=== PATIENT | male | born 1960 | race African-American/Black ===

== ENCOUNTER 2018-05-18 04:48 | Emergency (ER) | payer BC ==
[2018-05-18] MEDS ORDERED: cloNIDine HCl 0.1 MG TAB ONE (05:09)
[2018-05-18 05:41] LABS: Urine Blood TRACE (NEG); Urine Glucose NEGATIVE (NEG); Urine Protein NEGATIVE (NEG); Urine Specific Gravity 1.005 (1.005-1.030); Urine pH 5.5 (5.0-7.0)
[2018-05-18 05:47] LABS: Absolute Lymphocytes (CBC) 1.6 K/uL (0.7-4.9); Absolute Monocytes 0.5 K/uL (0.1-1.3); Absolute Neutrophil 3.2 K/uL (1.8-8.0); Basophils % 0.8 % (0-1.3); Eosinophils % 1.8 % (0-4.4); Hematocrit 42.7 % (39.6-49.0); Lymphocytes % 29.1 % (15.3-44.8); MCH 30.8 pg (27.0-35.0); MCV 90.8 fL (80-100); MPV 9.9 fL (7.6-11.3); Monocytes % 9.3 % (3.3-12.3); RBC Red Blood Cell Count 4.71 M/uL (4.33-5.43)
[2018-05-18 06:19] LABS: BUN Blood Urea Nitrogen 20 mg/dL (7-18); Bicarbonate 27 mmol/L (21-32); Glucose Level 100 mg/dL (74-106); Potassium 3.8 mmol/L (3.5-5.1); Sodium Level 140 mmol/L (136-145)
--- NOTE | 2018-05-18 06:25 | ER ---
Nurse's Notes [facility] Name: Alton Cloud Age: 57 yrs Sex: Male : 1960 Arrival Date: 05/18/2018 Time: 04:50 Bed 6 Private MD: Kuldeep Thomas C Diagnosis: Uncontrolled hypertension Presentation: 05/18 04:57 Presenting complaint: Patient states: My BP has been elevated since last night. I took tl2 an extra half of my amlodipine last night and this morning I felt jittery and my BP was still elevated so I took a whole dose of amlodipine about 2 hours ago. Denies vision problems, pain or dizziness. Transition of care: patient was not received from another setting of care. Onset of symptoms was May 17, 2018. Risk Assessment: Do you want to hurt yourself or someone else? Patient reports no desire to harm self or others. Initial Sepsis Screen: Does the patient meet any 2 criteria? No. Patient's initial sepsis screen is negative. Does the patient have a suspected source of infection? No. Patient's initial sepsis screen is negative. Care prior to arrival: None. 04:57 Method Of Arrival: Ambulatory tl2 04:57 Acuity: PRAKASH 3 tl2 Triage Assessment: 04:59 General: Appears in no apparent distress. comfortable, Behavior is calm, cooperative, tl2 appropriate for age. Pain: Denies pain. Historical: - Allergies: 04:59 No Known Allergies; tl2 - Home Meds: 04:59 amlodipine 5 mg tab 1 tab once daily [Active]; tl2 - PMHx: 04:59 Hypertension; tl2 - PSHx: 04:59 None; tl2 - Immunization history:: Adult Immunizations up to date. - Social history:: Smoking status: Patient/guardian denies using tobacco. - Ebola Screening: : No symptoms or risks identified at this time. Screenin:00 Abuse screen: Denies threats or abuse. Nutritional screening: No deficits noted. tl2 Tuberculosis screening: No symptoms or risk factors identified. Fall Risk None identified. Assessment: 04:58 General: Appears in no apparent distress. comfortable, Behavior is calm, cooperative. rv Pain: Denies pain. Neuro: Level of Consciousness is awake, alert, obeys commands, Oriented to person, place, time, situation. Cardiovascular: Heart tones S1 S2 present. Respiratory: Airway is patent. GI: No signs and/or symptoms were reported involving the gastrointestinal system. : No signs and/or symptoms were reported regarding the genitourinary system. EENT: No signs and/or symptoms were reported regarding the EENT system. Derm: Skin is intact. Musculoskeletal: No signs and/or symptoms reported regarding the musculoskeletal system. 05:54 Reassessment: Patient appears in no apparent distress at this time. Patient is alert, rv oriented x 3, equal unlabored respirations, skin warm/dry/pink. PATIENT IS COMFORTABLE LYING ON BED. VITAL SIGNS ARE STABLE. BLOOD PRESSURE IS DECREASING. BLOOD SPECIMEN RE-DRAWN AND SENT TO LAB. AWAITING RESULTS. Vital Signs: 04:59 BP 173 / 93; Pulse 72; Resp 18; Temp 98.1(O); Pulse Ox 98% on R/A; Weight 105.23 kg; tl2 Height 5 ft. 10 in. (177.80 cm); Pain 0/10; 06:29 BP 122 / 79; Pulse 61; Pulse Ox 96% on R/A; rv 04:59 Body Mass Index 33.29 (105.23 kg, 177.80 cm) tl2 ED Course: 04:50 Patient arrived in ED. ds1 04:51 Kuldeep Thomas MD is Private Physician. ds1 04:52 Angelo Graves, NGOC is Primary Nurse. bp 04:52 John Miller MD is Attending Physician. pkl 04:59 Triage completed. tl2 04:59 Arm band placed on right wrist. tl2 05:00 Patient has correct armband on for positive identification. Bed in low position. Call tl2 light in reach. Side rails up X 1. 05:15 Inserted saline lock: 20 gauge in left antecubital area, using aseptic technique. rv 06:24 Kuldeep Thomas MD is Referral Physician. pkl 06:29 No provider procedures requiring assistance completed. IV discontinued, bleeding rv controlled, No redness/swelling at site. Pressure dressing applied. Administered Medications: 05:10 Drug: cloNIDine 0.1 mg Route: PO; rv 06:31 Follow up: Response: No adverse reaction; Blood pressure is lowered rv Outcome: 06:25 Discharge ordered by MD. pkl 06:30 Discharged to home ambulatory. rv 06:30 Condition: improved 06:30 Discharge instructions given to patient, Instructed on discharge instructions, follow up and referral plans. medication usage. 06:43 Patient left the ED. rv Signatures: John Miller MD MD pkl Sanford, Demi ds1 Evelyn Espitia RN RN tl2 Angelo Graves RN RN Herbert Puckett RN RN rv Corrections: (The following items were deleted from the chart) 05:24 05:23 Inserted saline lock: 20 gauge in left antecubital area, using aseptic technique. rv rv
--- NOTE | 2018-05-18 06:26 | EDPHYS ---
Physician Documentation [facility] Name: Alton Cloud Age: 57 yrs Sex: Male : 1960 Arrival Date: 05/18/2018 Time: 04:50 Bed 6 Private MD: Kuldeep Thomas C ED Physician John Miller HPI: 05/18 05:05 This 57 yrs old Black Male presents to ER via Ambulatory with complaints of High Blood pkl Pressure. 05:05 Onset: The symptoms/episode began/occurred last night. Associated signs and symptoms: pkl Pertinent positives: jittery and legs cramp. Historical: - Allergies: 04:59 No Known Allergies; tl2 - Home Meds: 04:59 amlodipine 5 mg tab 1 tab once daily [Active]; tl2 - PMHx: 04:59 Hypertension; tl2 - PSHx: 04:59 None; tl2 - Immunization history:: Adult Immunizations up to date. - Social history:: Smoking status: Patient/guardian denies using tobacco. - Ebola Screening: : No symptoms or risks identified at this time. ROS: 05:05 Eyes: Negative for injury, pain, redness, and discharge, ENT: Negative for injury, pkl pain, and discharge, Neck: Negative for injury, pain, and swelling, Cardiovascular: Negative for chest pain, palpitations, and edema, Respiratory: Negative for shortness of breath, cough, wheezing, and pleuritic chest pain, Abdomen/GI: Negative for abdominal pain, nausea, vomiting, diarrhea, and constipation, Back: Negative for injury and pain, : Negative for injury, bleeding, discharge, and swelling. 05:05 MS/extremity: Positive for cramps both legs. 05:05 Skin: Negative for rash. 05:05 Neuro: Negative for altered mental status, headache. Exam: 05:05 Head/Face: Normocephalic, atraumatic. Eyes: Pupils equal round and reactive to light, pkl extra-ocular motions intact. Lids and lashes normal. Conjunctiva and sclera are non-icteric and not injected. Cornea within normal limits. Periorbital areas with no swelling, redness, or edema. ENT: Nares patent. No nasal discharge, no septal abnormalities noted. Tympanic membranes are normal and external auditory canals are clear. Oropharynx with no redness, swelling, or masses, exudates, or evidence of obstruction, uvula midline. Mucous membranes moist. Neck: Trachea midline, no thyromegaly or masses palpated, and no cervical lymphadenopathy. Supple, full range of motion without nuchal rigidity, or vertebral point tenderness. No Meningismus. Chest/axilla: Normal chest wall appearance and motion. Nontender with no deformity. No lesions are appreciated. Cardiovascular: Regular rate and rhythm with a normal S1 and S2. No gallops, murmurs, or rubs. Normal PMI, no JVD. No pulse deficits. Respiratory: Lungs have equal breath sounds bilaterally, clear to auscultation and percussion. No rales, rhonchi or wheezes noted. No increased work of breathing, no retractions or nasal flaring. Abdomen/GI: Soft, non-tender, with normal bowel sounds. No distension or tympany. No guarding or rebound. No evidence of tenderness throughout. Back: No spinal tenderness. No costovertebral tenderness. Full range of motion. Skin: Warm, dry with normal turgor. Normal color with no rashes, no lesions, and no evidence of cellulitis. MS/ Extremity: Pulses equal, no cyanosis. Neurovascular intact. Full, normal range of motion. Neuro: Awake and alert, GCS 15, oriented to person, place, time, and situation. Cranial nerves II-XII grossly intact. Motor strength 5/5 in all extremities. Sensory grossly intact. Cerebellar exam normal. Normal gait. Vital Signs: 04:59 BP 173 / 93; Pulse 72; Resp 18; Temp 98.1(O); Pulse Ox 98% on R/A; Weight 105.23 kg; tl2 Height 5 ft. 10 in. (177.80 cm); Pain 0/10; 06:29 BP 122 / 79; Pulse 61; Pulse Ox 96% on R/A; rv 04:59 Body Mass Index 33.29 (105.23 kg, 177.80 cm) tl2 MDM: 04:52 Patient medically screened. pkl 06:24 Data reviewed: vital signs, nurses notes, lab test result(s). pkl 05/18 05:05 Order name: CBC with Diff; Complete Time: 06:00 pkl 05/18 05:05 Order name: Chem 7; Complete Time: 06:20 pk 05/18 05:25 Order name: Urine Dipstick--Ancillary (enter results); Complete Time: 05:47 eb Administered Medications: 05:10 Drug: cloNIDine 0.1 mg Route: PO; rv 06:31 Follow up: Response: No adverse reaction; Blood pressure is lowered rv Disposition: 05/18/18 06:25 Discharged to Home. Impression: Uncontrolled hypertension. - Condition is Stable. - Prescriptions for Clonidine 0.1 mg Oral Tablet - take 1 tablet by ORAL route 1-2 times daily; 20 tablet. - Medication Reconciliation Form, Thank You Letter, Antibiotic Education, Prescription Opioid Use form. - Follow up: Kuldeep Thomas MD; When: 2 - 3 days; Reason: Re-evaluation by your physician. - Problem is new. - Symptoms have improved. Signatures: Dispatcher [employer] EDMS John Miller MD MD pkl Evelyn Espitia, RN RN tl2 Herbert Andrews RN RN rv Corrections: (The following items were deleted from the chart) 06:43 06:25 05/18/2018 06:25 Discharged to Home. Impression: Uncontrolled hypertension. rv Condition is Stable. Forms are Medication Reconciliation Form, Thank You Letter, Antibiotic Education, Prescription Opioid Use. Follow up: Kuldeep Thomas; When: 2 - 3 days; Reason: Re-evaluation by your physician. Problem is new. Symptoms have improved. pkl
== END 2018-05-18 06:43 | disposition home or self-care (01) ==
LOC: ER 04:48
DX: I10 Essential (primary) hypertension (principal)
CPT/HCPCS: 36415; 80048; 81003; 85025; 99283

== ENCOUNTER 2018-08-18 22:40 | Emergency (ER) | payer BC ==
[2018-08-18 23:31] LABS: Urine Blood TRACE (NEG); Urine Glucose NEGATIVE (NEG); Urine Protein NEGATIVE (NEG); Urine Specific Gravity 1.015 (1.005-1.030); Urine pH 5.5 (5.0-7.0)
[2018-08-18] MEDS ORDERED: NA CHLORIDE 0.9% 1,000 ML ONE (23:46)
[2018-08-18 23:58] LABS: Absolute Lymphocytes (CBC) 1.2 K/uL (0.7-4.9); Absolute Monocytes 0.4 K/uL (0.1-1.3); Absolute Neutrophil 3.3 K/uL (1.8-8.0); Basophils % 0.9 % (0-1.3); Eosinophils % 2.2 % (0-4.4); Hematocrit 41.4 % (39.6-49.0); MCV 90.7 fL (80-100); RBC Red Blood Cell Count 4.57 M/uL (4.33-5.43)
[2018-08-19 00:25] LABS: ALT/SGPT 23 U/L (12-78); AST/SGOT 13 U/L (15-37); Albumin 3.8 g/dL (3.4-5.0); Alkaline Phosphatase 86 U/L (45-117); BUN Blood Urea Nitrogen 16 mg/dL (7-18); Bicarbonate 27 mmol/L (21-32); Bilirubin Direct 0.2 mg/dL (0-0.2); Bilirubin Total 0.7 mg/dL (0.2-1.0); Glucose Level 105 mg/dL (74-106); Magnesium 2.3 mg/dL (1.8-2.4); NT PRO-BNP 7 pg/mL (<125); Protein, Total 7.6 g/dL (6.4-8.2); Sodium Level 141 mmol/L (136-145); Troponin (Emerg Dept Use Only) < 0.02 ng/mL (0.0-0.045)
[2018-08-19 00:28] LABS: Protime INR 1.01
--- NOTE | 2018-08-19 01:54 | ER ---
Nurse's Notes [facility] Name: Alton Cloud Age: 58 yrs Sex: Male : 1960 Arrival Date: 08/18/2018 Time: 22:40 Bed 8 Private MD: Kuldeep Thomas C Diagnosis: Chest pain. Pain both calves Presentation: 08/18 22:57 Presenting complaint: Patient states: Been to the doctor and had lab work but still ao having chills, left calf pain and now chest pain. Transition of care: patient was not received from another setting of care. Onset of symptoms is unknown. Risk Assessment: Do you want to hurt yourself or someone else? Patient reports no desire to harm self or others. Initial Sepsis Screen: Does the patient meet any 2 criteria? No. Patient's initial sepsis screen is negative. Does the patient have a suspected source of infection? No. Patient's initial sepsis screen is negative. Care prior to arrival: None. 22:57 Method Of Arrival: Ambulatory ao 22:57 Acuity: PRAKASH 3 ao Triage Assessment: 23:11 General: Behavior is calm, cooperative, appropriate for age. General: Appears in no ao apparent distress. Pain: Complains of pain in chest and left calf. Historical: - Allergies: 23:01 No Known Allergies; ao - Home Meds: 23:01 amlodipine 5 mg tab 1 tab once daily [Active]; olmesartan oral oral 1 tab once daily ao [Active]; clonidine HCl 0.1 mg Oral tab 1 tab 2 times per day [Active]; - PMHx: 23:01 Hypertension; ao - PSHx: 23:01 None; ao - Immunization history:: Adult Immunizations up to date. - Social history:: Smoking status: Patient/guardian denies using tobacco. - Ebola Screening: : Patient negative for fever greater than or equal to 101.5 degrees Fahrenheit, and additional compatible Ebola Virus Disease symptoms Patient denies exposure to infectious person Patient denies travel to an Ebola-affected area in the 21 days before illness onset. Screenin:11 Abuse screen: Denies threats or abuse. Denies injuries from another. Nutritional ao screening: No deficits noted. Tuberculosis screening: No symptoms or risk factors identified. Fall Risk None identified. Assessment: 23:09 General: Appears in no apparent distress. comfortable. Pain: Complains of pain in chest ao and left calf Pain does not radiate. Pain began 2-3 days ago. Neuro: Level of Consciousness is awake, alert, obeys commands, Oriented to person, place, time, situation, Appropriate for age Moves all extremities. Full function Speech is normal, Facial symmetry appears normal, Pupils are PERRLA. Cardiovascular: Capillary refill < 3 seconds Patient's skin is warm and dry. Respiratory: Airway is patent Respiratory effort is even, unlabored, Respiratory pattern is regular, symmetrical. GI: Abdomen is obese. : No signs and/or symptoms were reported regarding the genitourinary system. EENT: No signs and/or symptoms were reported regarding the EENT system. Derm: Skin is intact, Skin temperature is warm. Musculoskeletal: Circulation, motion, and sensation intact. Range of motion: intact in all extremities. 08/19 00:20 Reassessment: Patient appears in no apparent distress at this time. Patient and/or ao family updated on plan of care and expected duration. Pain level reassessed. Patient is alert, oriented x 3, equal unlabored respirations, skin warm/dry/pink. 01:41 Reassessment: Patient appears in no apparent distress at this time. Patient and/or ao family updated on plan of care and expected duration. Pain level reassessed. 02:03 Reassessment: DC instructions given to patient and . patient agree to follow up ao with Dr Thomas. Patient has no questions at this time. Vital Signs: 08/18 22:59 BP 146 / 90; Pulse 72; Resp 18; Temp 97.8(O); Pulse Ox 99% on R/A; Weight 106.59 kg ao (R); Height 5 ft. 10 in. (177.80 cm) (R); Pain 6/10; 08/19 00:20 BP 152 / 82; Pulse 84; Resp 18; Pulse Ox 99% on R/A; ao 01:41 BP 136 / 86; Pulse 72; Resp 16; Pulse Ox 98% ; Pain 0/10; ao 08/18 22:59 Body Mass Index 33.72 (106.59 kg, 177.80 cm) ao ED Course: 08/18 22:40 Patient arrived in ED. do 22:41 Kuldeep Thomas MD is Private Physician. do 22:56 Isaiah Terrell RN is Primary Nurse. ao 22:58 Triage completed. ao 23:01 Arm band placed on right wrist. Patient placed in an exam room, on a stretcher, on ao pulse oximetry, Patient notified of wait time. 23:03 John Miller MD is Attending Physician. pkl 23:11 Patient has correct armband on for positive identification. telemetry monitor on. Pulse ao ox on. NIBP on. 23:12 Patient maintains SpO2 saturation greater than 95% on room air. ao 23:53 Inserted saline lock: 20 gauge in left antecubital area, using aseptic technique. Blood oe collected. 08/19 00:27 X-ray completed. Portable x-ray completed in exam room. Patient tolerated procedure tm4 well. 00:31 XRAY Chest (1 view) In Process Unspecified. EDMS 01:53 Kuldeep Thomas MD is Referral Physician. pkl 02:02 No provider procedures requiring assistance completed. IV discontinued, intact, ao bleeding controlled, No redness/swelling at site. Pressure dressing applied. Administered Medications: 08/18 23:51 Drug: NS 0.9% 1000 ml Route: IV; Rate: 100 ml/hr; Site: left antecubital; ak1 08/19 02:04 Follow up: IV Status: Order to discontinue infusion; IV Intake: 200ml ao Intake: 02:04 IV: 200ml; Total: 200ml. ao Outcome: 01:54 Discharge ordered by . pkl 02:03 Discharged to home ambulatory. ao 02:03 Condition: stable 02:03 Discharge instructions given to patient, Instructed on discharge instructions, follow up and referral plans. Demonstrated understanding of instructions, follow-up care, medications. 02:05 Patient left the ED. ao Signatures: Dispatcher [employer] EDNH John Miller MD MD pkl Jazmin Tineo tm4 Lorri Hobson RN RN ak1 Isaiah Terrell, RN RN ao Sydney Betts [place] oe Corrections: (The following items were deleted from the chart) 01:41 00:20 Reassessment: Patient appears in no apparent distress at this time. Patient ao and/or family updated on plan of care and expected duration. Pain level reassessed. ao
--- NOTE | 2018-08-19 01:55 | EDPHYS ---
Physician Documentation [facility] Name: Alton Cloud Age: 58 yrs Sex: Male : 1960 Arrival Date: 08/18/2018 Time: 22:40 Bed 8 Private MD: Kuldeep Thomas C ED Physician John Miller HPI: 08/18 23:22 This 58 yrs old Black Male presents to ER via Ambulatory with complaints of Chest Pain pkl > 30 y/o, Leg Problem. 23:22 The patient or guardian reports chest pain that is located primarily in the substernal pkl area. Onset: today. Associated signs and symptoms: Pertinent positives: chills and pain both calves. The chest pain is described as dull. Historical: - Allergies: 23:01 No Known Allergies; ao - Home Meds: 23:01 amlodipine 5 mg tab 1 tab once daily [Active]; olmesartan oral oral 1 tab once daily ao [Active]; clonidine HCl 0.1 mg Oral tab 1 tab 2 times per day [Active]; - PMHx: 23:01 Hypertension; ao - PSHx: 23:01 None; ao - Immunization history:: Adult Immunizations up to date. - Social history:: Smoking status: Patient/guardian denies using tobacco. - Ebola Screening: : Patient negative for fever greater than or equal to 101.5 degrees Fahrenheit, and additional compatible Ebola Virus Disease symptoms Patient denies exposure to infectious person Patient denies travel to an Ebola-affected area in the 21 days before illness onset. ROS: 23:22 Eyes: Negative for injury, pain, redness, and discharge, ENT: Negative for injury, pkl pain, and discharge, Neck: Negative for injury, pain, and swelling. 23:22 Cardiovascular: Positive for chest pain. 23:22 Respiratory: Negative for cough, shortness of breath. 23:22 Abdomen/GI: Negative for abdominal pain, nausea, vomiting, and diarrhea. 23:22 Back: Negative for acute changes. 23:22 : Negative for urinary symptoms. 23:22 MS/extremity: Positive for pain, of the both calves. 23:22 Skin: Negative for rash. 23:22 Neuro: Negative for altered mental status. Exam: 23:22 Head/Face: Normocephalic, atraumatic. Eyes: Pupils equal round and reactive to light, pkl extra-ocular motions intact. Lids and lashes normal. Conjunctiva and sclera are non-icteric and not injected. Cornea within normal limits. Periorbital areas with no swelling, redness, or edema. ENT: Nares patent. No nasal discharge, no septal abnormalities noted. Tympanic membranes are normal and external auditory canals are clear. Oropharynx with no redness, swelling, or masses, exudates, or evidence of obstruction, uvula midline. Mucous membranes moist. Neck: Trachea midline, no thyromegaly or masses palpated, and no cervical lymphadenopathy. Supple, full range of motion without nuchal rigidity, or vertebral point tenderness. No Meningismus. Chest/axilla: Normal chest wall appearance and motion. Nontender with no deformity. No lesions are appreciated. Cardiovascular: Regular rate and rhythm with a normal S1 and S2. No gallops, murmurs, or rubs. Normal PMI, no JVD. No pulse deficits. 23:22 Respiratory: the patient does not display signs of respiratory distress, Respirations: normal, Breath sounds: are clear throughout. 23:22 Abdomen/GI: Bowel sounds: normal, Palpation: abdomen is soft and non-tender, in all quadrants. 23:22 Back: Exam negative for acute changes. 23:22 : Exam negative for acute changes. 23:22 Musculoskeletal/extremity: Exam is negative for acute changes. 23:22 Skin: Exam negative for rash. 23:22 Neuro: Orientation: is normal, Mentation: is normal, Cranial nerves: grossly normal, Motor: is normal. Vital Signs: 22:59 BP 146 / 90; Pulse 72; Resp 18; Temp 97.8(O); Pulse Ox 99% on R/A; Weight 106.59 kg ao (R); Height 5 ft. 10 in. (177.80 cm) (R); Pain 6/10; 08/19 00:20 BP 152 / 82; Pulse 84; Resp 18; Pulse Ox 99% on R/A; ao 01:41 BP 136 / 86; Pulse 72; Resp 16; Pulse Ox 98% ; Pain 0/10; ao 08/18 22:59 Body Mass Index 33.72 (106.59 kg, 177.80 cm) ao MDM: 08/18 23:03 Patient medically screened. pkl 08/19 01:46 Data reviewed: vital signs, nurses notes, lab test result(s), EKG, radiologic studies, pkl plain films. ED course: Patient feeling better. No distress noted. Asymptomatic. 08/18 23:15 Order name: Basic Metabolic Panel pkl 08/18 23:15 Order name: CBC with Diff pkl 08/18 23:15 Order name: LFT's; Complete Time: 01:39 pkl 08/18 23:15 Order name: Magnesium; Complete Time: 01:39 pkl 08/18 23:15 Order name: NT PRO-BNP; Complete Time: 01:39 pkl 08/18 23:15 Order name: PT-INR; Complete Time: 01:39 pkl 08/18 23:15 Order name: Troponin (emerg Dept Use Only); Complete Time: 01:39 pkl 08/18 23:15 Order name: D-Dimer; Complete Time: 01:39 pkl 08/18 23:15 Order name: Basic Metabolic Panel; Complete Time: 01:39 EDMS 08/18 23:15 Order name: CBC with Automated Diff; Complete Time: 01:39 EDMS 08/18 23:15 Order name: Urine Dipstick--Ancillary (enter results); Complete Time: 01:39 cc 08/18 23:16 Order name: Blood Culture Adult (2) pkl 08/18 23:16 Order name: Lactate; Complete Time: 01:39 pkl 08/18 23:16 Order name: Procalcitonin; Complete Time: 01:39 pkl 08/18 23:15 Order name: XRAY Chest (1 view) pkl 08/18 23:15 Order name: EKG; Complete Time: 23:16 pkl 08/18 23:15 Order name: Cardiac monitoring; Complete Time: 23:33 pkl 08/18 23:15 Order name: EKG - Nurse/Tech; Complete Time: 23:52 pkl 08/18 23:15 Order name: IV Saline Lock; Complete Time: 23:52 pkl 08/18 23:15 Order name: Labs collected and sent; Complete Time: 23:51 pkl 08/18 23:15 Order name: O2 Per Protocol; Complete Time: 23:33 pkl 08/18 23:15 Order name: O2 Sat Monitoring; Complete Time: 23:33 pkl 08/18 23:15 Order name: Urine Dipstick-Ancillary (obtain specimen); Complete Time: 23:15 cc 08/18 23:17 Order name: Sed Rate; Complete Time: 01:39 pkl 08/18 23:17 Order name: CRP; Complete Time: 01:39 pkl Administered Medications: 08/18 23:51 Drug: NS 0.9% 1000 ml Route: IV; Rate: 100 ml/hr; Site: left antecubital; ak1 08/19 02:04 Follow up: IV Status: Order to discontinue infusion; IV Intake: 200ml ao Disposition: 08/19/18 01:54 Discharged to Home. Impression: Chest pain. Pain both calves. - Condition is Stable. - Medication Reconciliation Form, Thank You Letter, Antibiotic Education, Prescription Opioid Use form. - Follow up: Kuldeep Thomas MD; When: 2 - 3 days; Reason: Re-evaluation by your physician. - Problem is new. - Symptoms have improved. Signatures: Dispatcher [employer] EDMS John Miller MD MD pkl Libby Pagan Lorri Hobson RN RN ak1 Isaiah Terrell RN RN ao Corrections: (The following items were deleted from the chart) 02:05 01:54 08/19/2018 01:54 Discharged to Home. Impression: Chest pain. Pain both calves. ao Condition is Stable. Forms are Medication Reconciliation Form, Thank You Letter, Antibiotic Education, Prescription Opioid Use. Follow up: Kuldeep Thomas; When: 2 - 3 days; Reason: Re-evaluation by your physician. Problem is new. Symptoms have improved. pkl
--- NOTE | 2018-08-19 10:22 | EKG ---
Test Date: 2018-08-18 Test Time: 23:05:19 Print Color Matcher: JENNIFFER MEASUREMENT RESULTS: Intervals: Rate: 67 CT: 180 QRSD: 90 QT: 402 QTc: 424 [place]: P: 40 CT: 180 QRS: 7 T: 12 INTERPRETIVE STATEMENTS: Normal sinus rhythm Normal ECG No previous ECG available for comparison Electronically Signed On 08-19-18 10:21:18 CDT by Dameon Thorne
--- NOTE | 2018-08-19 12:19 | RAD REPORT ---
EXAM DESCRIPTION: RAD - Chest Single View - 08/19/2018 12:30 am CLINICAL HISTORY: CHEST PAIN Chest pain. COMPARISON: No comparisons FINDINGS: Portable technique limits examination quality. The lungs are grossly clear. The heart is normal in size. No displaced fractures. IMPRESSION: No acute intrathoracic process suspected.
== END 2018-08-19 02:05 | disposition home or self-care (01) ==
LOC: ER 22:40
DX: R07.89 Other chest pain (principal); M79.662 Pain in left lower leg; M79.661 Pain in right lower leg; I10 Essential (primary) hypertension
CPT/HCPCS: 36415; 71045; 80048; 80076; 81003; 83605; 83735; 83880; 84145; 84484; 85025; 85379; 85610; 85652; 86140; 87040; 93005; 96360; 96361; 99285; J7030

== ENCOUNTER 2018-12-09 12:17 | Emergency (ER) | payer BC ==
[2018-12-09 13:28] LABS: Absolute Lymphocytes (CBC) 1.1 K/uL (0.7-4.9); Absolute Monocytes 0.3 K/uL (0.1-1.3); Absolute Neutrophil 2.5 K/uL (1.8-8.0); Basophils % 1.3 % (0-1.3); Eosinophils % 1.6 % (0-4.4); Lymphocytes % 27.9 % (15.3-44.8); MPV 9.1 fL (7.6-11.3); Monocytes % 7.5 % (3.3-12.3); RBC Red Blood Cell Count 4.72 M/uL (4.33-5.43)
[2018-12-09 13:32] LABS: Protime INR 1.02
[2018-12-09 13:49] LABS: ALT/SGPT 21 U/L (12-78); AST/SGOT 14 U/L (15-37); Albumin 3.9 g/dL (3.4-5.0); Alkaline Phosphatase 76 U/L (45-117); BUN Blood Urea Nitrogen 14 mg/dL (7-18); Bicarbonate 28 mmol/L (21-32); Bilirubin Direct 0.2 mg/dL (0-0.2); Bilirubin Total 0.7 mg/dL (0.2-1.0); Glucose Level 97 mg/dL (74-106); Magnesium 2.2 mg/dL (1.8-2.4); NT PRO-BNP 17 pg/mL (<125); Potassium 3.9 mmol/L (3.5-5.1); Protein, Total 7.5 g/dL (6.4-8.2); Sodium Level 141 mmol/L (136-145); Troponin (Emerg Dept Use Only) < 0.02 ng/mL (0.0-0.045)
--- NOTE | 2018-12-09 14:29 | RAD REPORT ---
EXAM DESCRIPTION: [place] Single View12/09/2018 1:11 pm CLINICAL HISTORY: Chest pain COMPARISON: Aug 2018 FINDINGS: The lungs appear clear of acute infiltrate. The heart is normal size IMPRESSION: No acute abnormalities displayed
--- NOTE | 2018-12-09 15:56 | EDPHYS ---
Physician Documentation [facility] Name: Alton Cloud Age: 58 yrs Sex: Male : 1960 Arrival Date: 12/09/2018 Time: 12:20 Bed 19 Private MD: Kuldeep Thomas C ED Physician Marty Mcfarland HPI: 12/09 12:48 This 58 yrs old Black Male presents to ER via Ambulatory with complaints of Back Pain, jmm Chest Pain. 12:48 The patient or guardian reports chest pain that is located primarily in the anterior [facility] chest wall, sternal. Onset: gradually, 3 day(s) ago. The pain does not radiate. The chest pain is described as aching. This is a 58 year old female that presents to the ED with sternal chest pain beginning approx 3 days ago. Patient states the pain is intermittent. Pain is nonexertional, denies shortness of breath. Patient also complains of 3 weeks of right upper back pain. Denies tearing pain. Denies fever. . Historical: - Allergies: 12:25 No Known Allergies; aj1 - Home Meds: 12:25 amlodipine 5 mg tab 1 tab once daily [Active]; clonidine HCl 0.1 mg Oral tab 1 tab 2 aj1 times per day [Active]; olmesartan Oral 1 tab once daily [Active]; - PMHx: 12:25 Hypertension; aj1 - Immunization history:: Flu vaccine is up to date. - Social history:: Smoking status: Patient/guardian denies using tobacco. - Ebola Screening: : Patient denies travel to an Ebola-affected area in the 21 days before illness onset. ROS: 12:48 Constitutional: Negative for fever, chills, and weight loss. jmm 12:48 Respiratory: Negative for shortness of breath, cough, wheezing, and pleuritic chest pain, Abdomen/GI: Negative for abdominal pain, nausea, vomiting, diarrhea, and constipation. 12:48 Cardiovascular: Positive for chest pain. 12:48 All other systems are negative. Exam: 12:48 Head/Face: atraumatic. Eyes: EOMI, no conjunctival erythema appreciated Chest/axilla: jmm Normal chest wall appearance and motion. Cardiovascular: Regular rate and rhythm. No edema appreciated Respiratory: Normal respirations, no respiratory distress appreciated Abdomen/GI: Non distended, soft Skin: General appearance color normal MS/ Extremity: Moves all extremities, no obvious deformities appreciated, no edema noted to the lower extremities Neuro: Awake and alert, normal gait Psych: Behavior is normal, Mood is normal, Patient is cooperative and pleasant 12:48 Constitutional: The patient appears in no acute distress, alert, awake. 12:48 Back: muscle spasm noted to the right thoracic region of the trapezius muscle. pain is point tender. Vital Signs: 12:25 BP 147 / 92; Pulse 72; Resp 18; Temp 97.6; Pulse Ox 99% on R/A; Weight 101.15 kg (R); aj1 Height 5 ft. 10 in. (177.80 cm) (R); Pain 3/10; 13:26 BP 127 / 76; Pulse 76; Resp 18; Pulse Ox 99% on R/A; Pain 0/10; em 14:03 BP 123 / 76; Pulse 62; Resp 14; Pulse Ox 98% on R/A; Pain 0/10; em 14:55 BP 124 / 84; Pulse 60; Resp 16; Pulse Ox 98% on R/A; Pain 0/10; em 15:53 BP 130 / 87; Pulse 61; Resp 18; Pulse Ox 98% on R/A; tw2 12:25 Body Mass Index 32.00 (101.15 kg, 177.80 cm) 1 MDM: 12:48 Patient medically screened. [facility] 12:48 Data reviewed: vital signs, nurses notes. [facility] 15:52 MAYURI Risk Score: TOTAL SCORE = 0. Data reviewed: lab test result(s), EKG, radiologic [facility] studies, plain films. Data interpreted: Pulse oximetry: on room air is 98 %. Interpretation: normal. ED course: HEART Score = 2. ED course: Patient will follow up with PCP for reevaluation. Patient is otherwise given strict return precautions. I do not suspect dissection. Back pain appears most likely musculoskeletal. . 12/09 12:49 Order name: Basic Metabolic Panel; Complete Time: 13:53 [facility] 12/09 12:49 Order name: CBC with Diff; Complete Time: 13:46 [facility] 12/09 12:49 Order name: LFT's; Complete Time: 13:53 [facility] 12/09 12:49 Order name: Magnesium; Complete Time: 13:53 [facility] 12/09 12:49 Order name: NT PRO-BNP; Complete Time: 13:53 [facility] 12/09 12:49 Order name: PT-INR; Complete Time: 13:46 [facility] 12/09 12:49 Order name: Troponin (emerg Dept Use Only); Complete Time: 13:53 [facility] 12/09 12:49 Order name: XRAY Chest (1 view); Complete Time: 14:32 [facility] 12/09 12:49 Order name: EKG; Complete Time: 12:49 [facility] 12/09 12:49 Order name: Cardiac monitoring; Complete Time: 13:07 [facility] 12/09 12:49 Order name: EKG - Nurse/Tech; Complete Time: 13: [facility] 12/09 13:26 Order name: D-Dimer; Complete Time: 13:46 [facility] 12/09 14:48 Order name: Troponin (emerg Dept Use Only): 2 hour; Complete Time: 15:46 [facility] 12/09 12:49 Order name: IV Saline Lock; Complete Time: 13: [facility] 12/09 12:49 Order name: Labs collected and sent; Complete Time: 13: [facility] 12/09 12:49 Order name: O2 Per Protocol; Complete Time: 13: [facility] 12/09 12:49 Order name: O2 Sat Monitoring; Complete Time: 13: [facility] 12/09 14:48 Order name: EKG - Nurse/Tech: 2 hour; Complete Time: 15:27 jm Administered Medications: No medications were administered Disposition: 17:43 Co-signature as Attending Physician, Marty Mcfarland MD. rn Disposition: 12/09/18 15:55 Discharged to Home. Impression: Chest pain, unspecified, Muscle spasm of back. - Condition is Stable. - Discharge Instructions: Nonspecific Chest Pain, Muscle Cramps and Spasms. - Prescriptions for orphenadrine citrate 100 mg Oral Tablet Sustained Release - take 1 tablet by ORAL route 2 times per day As needed; 20 tablet. - Medication Reconciliation Form, Thank You Letter, Antibiotic Education, Prescription Opioid Use, Work release form form. - Follow up: Kuldeep Thomas MD; When: 1 - 2 days; Reason: Recheck today's complaints, Continuance of care, Re-evaluation by your physician. Signatures: [facility]patcher [facility] Charley Lozano RN RN aj1 Bowen Pak PA PA jmm Nieto, Roman, MD MD rn Wise, Tara, RN RN tw2 Corrections: (The following items were deleted from the chart) 13:26 13:01 D-DIMER+[id number].[id number] ordered. EDMS EDMS 16:06 15:55 12/09/2018 15:55 Discharged to Home. Impression: Chest pain, unspecified; Muscle tw2 spasm of back. Condition is Stable. Forms are Work release form, Medication Reconciliation Form, Thank You Letter, Antibiotic Education, Prescription Opioid Use. Follow up: A Thomas; When: 1 - 2 days; Reason: Recheck today's complaints, Continuance of care, Re-evaluation by your physician. denise
--- NOTE | 2018-12-09 15:56 | ER ---
Nurse's Notes [facility] Name: Alton Cloud Age: 58 yrs Sex: Male : 1960 Arrival Date: 12/09/2018 Time: 12:20 Bed 19 Private MD: Kuldeep Thomas C Diagnosis: Chest pain, unspecified;Muscle spasm of back Presentation: 12/09 12:23 Presenting complaint: Patient states: Back pain for the past 2 to 3 weeks, today the aj1 pain started to radiate to his chest that he describes as soreness. Patient also reports dizziness Denies SOB. Transition of care: patient was not received from another setting of care. Onset of symptoms was December 09, 2018 at 10:00. Risk Assessment: Do you want to hurt yourself or someone else? Patient reports no desire to harm self or others. Initial Sepsis Screen: Does the patient meet any 2 criteria? No. Patient's initial sepsis screen is negative. Does the patient have a suspected source of infection? No. Patient's initial sepsis screen is negative. Care prior to arrival: None. 12:23 Method Of Arrival: Ambulatory aj1 12:23 Acuity: PRAKASH 3 aj1 Triage Assessment: 12:25 General: Appears in no apparent distress. comfortable, Behavior is calm, cooperative, aj1 appropriate for age. Pain: Complains of pain in thoracic area Pain radiates to mid-sternal area Pain currently is 3 out of 10 on a pain scale. Neuro: Level of Consciousness is awake, alert, obeys commands. Cardiovascular: Patient's skin is warm and dry. Respiratory: Airway is patent Respiratory effort is even, unlabored, Respiratory pattern is regular, symmetrical. Historical: - Allergies: 12:25 No Known Allergies; aj1 - Home Meds: 12:25 amlodipine 5 mg tab 1 tab once daily [Active]; clonidine HCl 0.1 mg Oral tab 1 tab 2 aj1 times per day [Active]; olmesartan Oral 1 tab once daily [Active]; - PMHx: 12:25 Hypertension; aj1 - Immunization history:: Flu vaccine is up to date. - Social history:: Smoking status: Patient/guardian denies using tobacco. - Ebola Screening: : Patient denies travel to an Ebola-affected area in the 21 days before illness onset. Screenin:37 Abuse screen: Denies threats or abuse. Nutritional screening: No deficits noted. em Tuberculosis screening: No symptoms or risk factors identified. Fall Risk None identified. Assessment: 12:57 General: Appears in no apparent distress. comfortable, Behavior is calm, cooperative, em reports back pain and chest pain that come and go for about a week, described as sharp, denies N/V. Pain: Denies pain. Neuro: Level of Consciousness is awake, alert, obeys commands, Oriented to person, place, time, situation. Cardiovascular: Capillary refill < 3 seconds Patient's skin is warm and dry. Respiratory: Airway is patent Respiratory effort is even, unlabored, Respiratory pattern is regular, symmetrical. GI: Abdomen is flat, Patient currently denies nausea, vomiting. Derm: Skin is intact, is healthy with good turgor, Skin is pink, warm \T\ dry. Musculoskeletal: Range of motion: intact in all extremities. 13:05 Reassessment: I agree with previous assessment. hb 14:03 Reassessment: Patient appears in no apparent distress at this time. Patient and/or em family updated on plan of care and expected duration. Pain level reassessed. Patient is alert, oriented x 3, equal unlabored respirations, skin warm/dry/pink. Patient denies pain at this time. 15:05 Reassessment: Patient appears in no apparent distress at this time. Patient and/or em family updated on plan of care and expected duration. Pain level reassessed. Patient is alert, oriented x 3, equal unlabored respirations, skin warm/dry/pink. Patient denies pain at this time. 15:53 Reassessment: Patient appears in no apparent distress at this time. Patient and/or tw2 family updated on plan of care and expected duration. Pain level reassessed. Patient is alert, oriented x 3, equal unlabored respirations, skin warm/dry/pink. Patient denies pain at this time. Vital Signs: 12:25 BP 147 / 92; Pulse 72; Resp 18; Temp 97.6; Pulse Ox 99% on R/A; Weight 101.15 kg (R); aj1 Height 5 ft. 10 in. (177.80 cm) (R); Pain 3/10; 13:26 BP 127 / 76; Pulse 76; Resp 18; Pulse Ox 99% on R/A; Pain 0/10; em 14:03 BP 123 / 76; Pulse 62; Resp 14; Pulse Ox 98% on R/A; Pain 0/10; em 14:55 BP 124 / 84; Pulse 60; Resp 16; Pulse Ox 98% on R/A; Pain 0/10; em 15:53 BP 130 / 87; Pulse 61; Resp 18; Pulse Ox 98% on R/A; tw2 12:25 Body Mass Index 32.00 (101.15 kg, 177.80 cm) aj1 ED Course: 12:20 Patient arrived in ED. mr 12:20 Kuldeep Thomas MD is Private Physician. mr 12:25 Triage completed. aj1 12:25 Arm band placed on Patient placed in an exam room. aj1 12:28 Bowen Pak PA is PHCP. jmm 12:28 Marty Mcfarland MD is Attending Physician. jmm 12:28 Noel Hill LVN is Primary Nurse. em 12:37 Patient has correct armband on for positive identification. Placed in gown. Bed in low em position. Call light in reach. national van truck driver on. Pulse ox on. NIBP on. 13:03 EKG done, by ED staff, reviewed by Marty Mcfarland MD. em 13:11 X-ray completed. Portable x-ray completed in exam room. Patient tolerated procedure la2 well. 13:12 XRAY Chest (1 view) In Process Unspecified. EDMS 13:20 Initial lab(s) drawn, by ga, sent to lab. Inserted saline lock: 20 gauge in right em antecubital area, using aseptic technique. Blood collected. 15:07 EKG done, by ED staff, reviewed by Marty Mcfarland MD. em 15:37 Primary Nurse role handed off by Noel Hill LVN tw2 15:37 Tanya Marte, NGOC is Primary Nurse. tw2 15:54 Kuldeep Thomas MD is Referral Physician. jmm 16:05 No provider procedures requiring assistance completed. IV discontinued, intact, tw2 bleeding controlled, No redness/swelling at site. Pressure dressing applied. Administered Medications: No medications were administered Outcome: 15:55 Discharge ordered by . jmm 16:05 Discharged to home ambulatory, with significant other. tw2 16:05 Condition: stable 16:05 Discharge instructions given to patient, significant other, Instructed on discharge instructions, follow up and referral plans. no drinking with medication, no driving heavy equipment, medication usage, Demonstrated understanding of instructions, follow-up care, medications, Prescriptions given X 1. 16:06 Patient left the ED. tw2 Signatures: Dispatcher [employer] Charley Lozano, RN RN aj1 Bowen Pak PA PA jmm Rivera, Mary mr Sergio, Noel, TAILINGS MAN TAILINGS MAN Vibha Springer RN RN hb Wise, Tara, RN RN tw2 Leigha Damian
--- NOTE | 2018-12-10 07:58 | EKG ---
Test Date: 2018-12-09 Test Time: 13:03:28 Rehab Trainer: PRISCILLA MEASUREMENT RESULTS: Intervals: Rate: 64 VT: 180 QRSD: 86 QT: 388 QTc: 400 [place]: P: 54 VT: 180 QRS: 40 T: 52 INTERPRETIVE STATEMENTS: Normal sinus rhythm Normal ECG Compared to ECG 08/18/2018 23:05:19 No significant changes Electronically Signed On 12-10-18 07:54:08 COACH OPERATOR by Dameon Thorne
--- NOTE | 2018-12-10 20:52 | EKG ---
Test Date: 2018-12-09 Test Time: 15:07:48 Facility Manager: PRISCILLA MEASUREMENT RESULTS: Intervals: Rate: 61 WI: 178 QRSD: 90 QT: 404 QTc: 406 [place]: P: 55 WI: 178 QRS: 36 T: 37 INTERPRETIVE STATEMENTS: Normal sinus rhythm Nonspecific ST abnormality Abnormal ECG Compared to ECG 12/09/2018 13:03:28 ST (T wave) deviation now present Electronically Signed On 12-10-18 20:48:21 DIRECTOR SUPPLY CHAIN by Dameon Thorne
== END 2018-12-09 16:06 | disposition home or self-care (01) ==
LOC: ER 12:17
DX: M62.830 Muscle spasm of back (principal); R07.9 Chest pain, unspecified
CPT/HCPCS: 36415; 71045; 80048; 80076; 83735; 83880; 84484; 85025; 85379; 85610; 93005; 99285

== ENCOUNTER 2019-05-28 18:36 | Emergency (ER) | payer BC ==
--- NOTE | 2019-05-28 20:06 | RAD REPORT ---
EXAM DESCRIPTION: RAD - Chest Pa And Lat (2 Views) - 05/28/2019 7:35 pm CLINICAL HISTORY: COUGH Chest pain. COMPARISON: Chest Single View dated 12/09/2018; Chest Single View dated 08/18/2018 FINDINGS: The lungs are clear. The heart is normal in size. No displaced fractures. IMPRESSION: No acute or concerning finding suspected.
--- NOTE | 2019-05-28 21:05 | EDPHYS ---
Physician Documentation [facility] Name: Alton Cloud Age: 58 yrs Sex: Male : 1960 Arrival Date: 05/28/2019 Time: 18:36 Bed 23 Private MD: ED Physician Conrad Parmar HPI: 05/28 19:14 This 58 yrs old Black Male presents to ER via Ambulatory with complaints of Cold pm1 Symptoms. 19:14 The patient or guardian reports cough, with no sputum. Onset: The symptoms/episode pm1 began/occurred 1 week(s) ago. Modifying factors: The symptoms are alleviated by OTC meds. Associated signs and symptoms: Pertinent positives: rhinorrhea, sinus congestion, Pertinent negatives: diarrhea, ear ache, fever, sore throat. Severity of symptoms: in the emergency department the symptoms have improved markedly. Patient presenting here with who was diagnosed with pneumonia about a week ago. She is concerned that he might have caught it. He just want to make sure he does not have the flu. He has not had any fevers and his symptoms have improved with over the counter cold medications. Historical: - Allergies: 18:41 No Known Allergies; hj - PMHx: 18:41 Hypertension; hj - PSHx: 18:41 None; hj - Immunization history:: Adult Immunizations up to date. - Social history:: Smoking status: Patient/guardian denies using tobacco. - Ebola Screening: : Patient negative for fever greater than or equal to 101.5 degrees Fahrenheit, and additional compatible Ebola Virus Disease symptoms Patient denies exposure to infectious person Patient denies travel to an Ebola-affected area in the 21 days before illness onset No symptoms or risks identified at this time. ROS: 19:14 Constitutional: Negative for fever, chills, and weight loss, Eyes: Negative for injury, pm1 pain, redness, and discharge. 19:14 Neck: Negative for injury, pain, and swelling, Cardiovascular: Negative for chest pain, palpitations, and edema, Respiratory: Negative for shortness of breath, cough, wheezing, and pleuritic chest pain, Abdomen/GI: Negative for abdominal pain, nausea, vomiting, diarrhea, and constipation, Back: Negative for injury and pain, MS/Extremity: Negative for injury and deformity, Skin: Negative for injury, rash, and discoloration, Neuro: Negative for headache, weakness, numbness, tingling, and seizure. 19:14 ENT: Positive for sinus congestion, Negative for drainage from ear(s), ear pain, sore throat. Exam: 19:14 Constitutional: This is a well developed, well nourished patient who is awake, alert, pm1 and in no acute distress. Head/Face: Normocephalic, atraumatic. Eyes: Pupils equal round and reactive to light, extra-ocular motions intact. Lids and lashes normal. Conjunctiva and sclera are non-icteric and not injected. Cornea within normal limits. Periorbital areas with no swelling, redness, or edema. ENT: Nares patent. No nasal discharge, no septal abnormalities noted. Tympanic membranes are normal and external auditory canals are clear. Oropharynx with no redness, swelling, or masses, exudates, or evidence of obstruction, uvula midline. Mucous membranes moist. Neck: Trachea midline, no thyromegaly or masses palpated, and no cervical lymphadenopathy. Supple, full range of motion without nuchal rigidity, or vertebral point tenderness. No Meningismus. Chest/axilla: Normal chest wall appearance and motion. Nontender with no deformity. No lesions are appreciated. Cardiovascular: Regular rate and rhythm with a normal S1 and S2. No gallops, murmurs, or rubs. Normal PMI, no JVD. No pulse deficits. Respiratory: Lungs have equal breath sounds bilaterally, clear to auscultation and percussion. No rales, rhonchi or wheezes noted. No increased work of breathing, no retractions or nasal flaring. Abdomen/GI: Soft, non-tender, with normal bowel sounds. No distension or tympany. No guarding or rebound. No evidence of tenderness throughout. Back: No spinal tenderness. No costovertebral tenderness. Full range of motion. Skin: Warm, dry with normal turgor. Normal color with no rashes, no lesions, and no evidence of cellulitis. MS/ Extremity: Pulses equal, no cyanosis. Neurovascular intact. Full, normal range of motion. 19:14 Neuro: Orientation: is normal, Motor: is normal, moves all fours. Vital Signs: 18:41 BP 149 / 80; Pulse 63; Resp 16; Temp 98.6(TE); Pulse Ox 98% on R/A; Weight 97.52 kg; hj Height 5 ft. 10 in. (177.80 cm); Pain 0/10; 21:11 BP 135 / 79; Pulse 65; Resp 17 S; Temp 98(O); Pulse Ox 98% on R/A; ca1 18:41 Body Mass Index 30.85 (97.52 kg, 177.80 cm) hj MDM: 19:04 Patient medically screened. pm1 21:03 Data reviewed: vital signs. Data interpreted: Pulse oximetry: on room air is 98 %. pm1 Interpretation: normal. Counseling: I had a detailed discussion with the patient and/or guardian regarding: the historical points, exam findings, and any diagnostic results supporting the discharge/admit diagnosis, radiology results, the need for outpatient follow up, to return to the emergency department if symptoms worsen or persist or if there are any questions or concerns that arise at home. 05/28 19:13 Order name: Flu; Complete Time: 20:56 pm1 05/28 19:15 Order name: Chest Pa And Lat (2 Views) XRAY; Complete Time: 20:56 pm1 Administered Medications: No medications were administered Disposition: 05/29 05:52 Co-signature as Attending Physician, Conrad Parmar MD I agree with the assessment and ja plan of care. Disposition: 05/28/19 21:04 Discharged to Home. Impression: Acute upper respiratory infection, unspecified. - Condition is Stable. - Discharge Instructions: Upper Respiratory Infection, Adult, Viral Respiratory Infection. - Medication Reconciliation Form, Thank You Letter, Antibiotic Education, Prescription Opioid Use form. - Follow up: Emergency Department; When: As needed; Reason: Trouble breathing. Follow up: Private Physician; When: 2 - 3 days; Reason: Recheck today's complaints, Continuance of care, Re-evaluation by your physician. - Problem is new. - Symptoms have improved. Signatures: Dispatcher [employer] Conrad Rosas MD MD cha Joaquin, Henry, RN RN hj Marinas, Patrick, NP BALANCE WHEEL FACER pm1 Shellie Woodard RN RN ca1 Corrections: (The following items were deleted from the chart) 05/28 21:13 21:04 05/28/2019 21:04 Discharged to Home. Impression: Acute upper respiratory ca1 infection, unspecified. Condition is Stable. Forms are Medication Reconciliation Form, Thank You Letter, Antibiotic Education, Prescription Opioid Use. Follow up: Emergency Department; When: As needed; Reason: Trouble breathing. Follow up: Private Physician; When: 2 - 3 days; Reason: Recheck today's complaints, Continuance of care, Re-evaluation by your physician. Problem is new. Symptoms have improved. pm1
--- NOTE | 2019-05-28 21:05 | ER ---
Nurse's Notes [facility] Name: Alton Cloud Age: 58 yrs Sex: Male : 1960 Arrival Date: 05/28/2019 Time: 18:36 Bed 23 Private MD: Diagnosis: Acute upper respiratory infection, unspecified Presentation: 05/28 18:40 Presenting complaint: Patient states: latonya been having colds for about a week now, i hj dont i have sore throat and fever and cough already; today i still have the nasal congestion and i feel dizzy, i just want to check whether i have the flu;. Transition of care: patient was not received from another setting of care. Onset of symptoms was May 28, 2019. Risk Assessment: Do you want to hurt yourself or someone else? Patient reports no desire to harm self or others. Initial Sepsis Screen: Does the patient meet any 2 criteria? No. Patient's initial sepsis screen is negative. Does the patient have a suspected source of infection? No. Patient's initial sepsis screen is negative. Care prior to arrival: None. 18:40 Method Of Arrival: Ambulatory 18:40 Acuity: PRAKASH 4 hj Historical: - Allergies: 18:41 No Known Allergies; hj - PMHx: 18:41 Hypertension; hj - PSHx: 18:41 None; hj - Immunization history:: Adult Immunizations up to date. - Social history:: Smoking status: Patient/guardian denies using tobacco. - Ebola Screening: : Patient negative for fever greater than or equal to 101.5 degrees Fahrenheit, and additional compatible Ebola Virus Disease symptoms Patient denies exposure to infectious person Patient denies travel to an Ebola-affected area in the 21 days before illness onset No symptoms or risks identified at this time. Screenin:25 Abuse screen: Denies threats or abuse. Denies injuries from another. Nutritional ca1 screening: No deficits noted. Tuberculosis screening: No symptoms or risk factors identified. Fall Risk None identified. Assessment: 20:25 General: Appears in no apparent distress. comfortable, Behavior is calm, cooperative, ca1 appropriate for age. Pain: Denies pain. Neuro: Level of Consciousness is awake, alert, obeys commands, Oriented to person, place, time, situation. Cardiovascular: Heart tones S1 S2 present Capillary refill < 3 seconds Patient's skin is warm and dry. Respiratory: Airway is patent Respiratory effort is even, unlabored, Respiratory pattern is regular, symmetrical, Breath sounds are clear bilaterally. Respiratory: Denies cough. GI: Abdomen is flat, non-distended, Bowel sounds present X 4 quads. Abd is soft and non tender X 4 quads. : No deficits noted. No signs and/or symptoms were reported regarding the genitourinary system. EENT: No deficits noted. No signs and/or symptoms were reported regarding the EENT system. Reports nasal congestion. Derm: Skin is intact, is healthy with good turgor, Skin is pink, warm \T\ dry. Musculoskeletal: Circulation, motion, and sensation intact. Capillary refill < 3 seconds, Range of motion: intact in all extremities. 21:11 Reassessment: Patient appears in no apparent distress at this time. Patient and/or ca1 family updated on plan of care and expected duration. Pain level reassessed. Patient is alert, oriented x 3, equal unlabored respirations, skin warm/dry/pink. Vital Signs: 18:41 BP 149 / 80; Pulse 63; Resp 16; Temp 98.6(TE); Pulse Ox 98% on R/A; Weight 97.52 kg; hj Height 5 ft. 10 in. (177.80 cm); Pain 0/10; 21:11 BP 135 / 79; Pulse 65; Resp 17 S; Temp 98(O); Pulse Ox 98% on R/A; ca1 18:41 Body Mass Index 30.85 (97.52 kg, 177.80 cm) ED Course: 18:36 Patient arrived in ED. as 18:41 Triage completed. hj 18:42 Arm band placed on right wrist. hj 19:04 Augusto Krishnan, ANDREW is PHCP. pm1 19:04 Conrad Parmar MD is Attending Physician. pm1 19:33 Chest Pa And Lat (2 Views) XRAY In Process Unspecified. EDMS 20:25 Patient has correct armband on for positive identification. Bed in low position. Call ca1 light in reach. Side rails up X 1. Pulse ox on. NIBP on. 20:49 Shellie Woodard, NGOC is Primary Nurse. ca1 21:12 No provider procedures requiring assistance completed. Patient did not have IV access ca1 during this emergency room visit. Administered Medications: No medications were administered Outcome: 21:04 Discharge ordered by . pm1 21:13 Discharged to home ambulatory, with significant other. ca1 21:13 Condition: stable 21:13 Discharge instructions given to patient, Instructed on discharge instructions, follow up and referral plans. Demonstrated understanding of instructions, follow-up care. 21:13 Patient left the ED. ca1 Signatures: Dispatcher [employer] EDaJne Giordano Henry, RN RN Augusto Krishnan NP [employer]AT [employer]ER pm1 Shellie Woodard RN RN ca1 Corrections: (The following items were deleted from the chart) 18:43 18:41 Pulse 63bpm; Resp 16bpm; Pulse Ox 98% RA; Temp 98.6F Temporal; 97.52 kg; Height 5 hj ft. 10 in.; BMI: 30.8; Pain 0/10; hj 18:47 18:40 Presenting complaint: Patient states: latonya been having colds for about a week now, hj i dont i have sore throat and fever and cough already; today i still have the nasal congestion and i feel dizzy; hj
== END 2019-05-28 21:13 | disposition home or self-care (01) ==
LOC: ER 18:36
DX: J06.9 Acute upper respiratory infection, unspecified (principal)
CPT/HCPCS: 71046; 87804; 99283

== ENCOUNTER 2019-10-06 04:25 | Emergency (ER) | payer BC ==
[2019-10-06] MEDS ORDERED: AZITHROMYCIN 250 MG TAB ONE (05:25)
--- NOTE | 2019-10-06 06:04 | ER ---
Nurse's Notes [facility] Name: Alton Cloud Age: 59 yrs Sex: Male : 1960 Arrival Date: 10/06/2019 Time: 04:28 Bed 7 Private MD: Kuldeep Thomas C Diagnosis: Acute upper respiratory infection, unspecified;Bronchitis, not specified as acute or chronic Presentation: 10/06 04:42 Presenting complaint: Patient states: cough \T\ sore throat x 5 days and reports today he aa1 began to have a slight pain in his L rib cage so he was concerned he might be getting an infection. Transition of care: patient was not received from another setting of care. Onset of symptoms was September 30, 2019. Risk Assessment: Do you want to hurt yourself or someone else? Patient reports no desire to harm self or others. Initial Sepsis Screen: Does the patient meet any 2 criteria? No. Patient's initial sepsis screen is negative. Does the patient have a suspected source of infection? Yes: Productive cough/pneumonia. Care prior to arrival: None. 04:42 Method Of Arrival: Ambulatory aa1 04:42 Acuity: PRAKASH 3 aa1 Triage Assessment: 04:50 General: Appears in no apparent distress. comfortable, Behavior is calm, cooperative, aa1 appropriate for age. Historical: - Allergies: 04:50 No Known Allergies; aa1 - Home Meds: 04:50 olmesartan Oral 1 tab as needed [Active]; aa1 - PMHx: 04:50 Hypertension; aa1 - PSHx: 04:50 None; aa1 - Immunization history:: Flu vaccine is up to date. - Social history:: Smoking status: Patient/guardian denies using tobacco. - Ebola Screening: : Patient denies exposure to infectious person Patient denies travel to an Ebola-affected area in the 21 days before illness onset. - Family history:: not pertinent. Screenin:56 Abuse screen: Denies threats or abuse. Denies injuries from another. Nutritional rr5 screening: No deficits noted. Tuberculosis screening: Fall Risk None identified. Total Lockwood Fall Scale indicates No Risk (0-24 pts). Assessment: 06:26 General: Appears comfortable, Behavior is calm, cooperative. Pain: Denies pain. Neuro: rv Level of Consciousness is awake, alert, obeys commands, Oriented to person, place, time, situation. Cardiovascular: Patient's skin is warm and dry. Respiratory: Airway is patent Respiratory effort is even, Breath sounds are clear bilaterally. GI: No signs and/or symptoms were reported involving the gastrointestinal system. : No signs and/or symptoms were reported regarding the genitourinary system. EENT: Throat is clear. Derm: Skin is intact. Musculoskeletal: No signs and/or symptoms reported regarding the musculoskeletal system. Vital Signs: 04:36 BP 156 / 98; Pulse 65; Resp 17; Temp 97.6(TE); Pulse Ox 100% on R/A; rv 04:50 Weight 103.42 kg (R); Height 5 ft. 10 in. (177.80 cm); aa1 06:27 BP 130 / 80; Pulse 66; Resp 16; Pulse Ox 100% on R/A; rv 04:50 Body Mass Index 32.71 (103.42 kg, 177.80 cm) aa1 ED Course: 04:28 Patient arrived in ED. es 04:28 Kuldeep Thomas MD is Private Physician. es 04:38 Conrad Parmar MD is Attending Physician. ja 04:39 Herbert Andrews RN is Primary Nurse. rv 04:43 Triage completed. aa1 04:50 Arm band placed on right wrist. aa1 04:55 Patient has correct armband on for positive identification. Bed in low position. Call rr5 light in reach. Pulse ox on. NIBP on. 06:03 Kuldeep Thomas MD is Referral Physician. ja 06:08 Chest Pa And Lat (2 Views) XRAY In Process Unspecified. EDMS 06:27 No provider procedures requiring assistance completed. Patient did not have IV access rv during this emergency room visit. Administered Medications: 05:33 Drug: Zithromax 500 mg Route: PO; rr5 Outcome: 06:03 Discharge ordered by . ja 06:27 Discharged to home ambulatory, with family. rv 06:27 Condition: good 06:27 Discharge instructions given to patient, family, Instructed on discharge instructions, follow up and referral plans. medication usage, Demonstrated understanding of instructions, follow-up care, medications, Prescriptions given X 3. 06:28 Patient left the ED. rv Signatures: Dispatcher [employer] EDIL Alise Du RN RN aa1 Conrad Parmar MD MD cha Salyer, Edna es Vicente, Ronaldo, RN RN rv Ben Frias RN RN rr5
--- NOTE | 2019-10-06 06:05 | EDPHYS ---
Physician Documentation [facility] Name: Alton Cloud Age: 59 yrs Sex: Male : 1960 Arrival Date: 10/06/2019 Time: 04:28 Bed 7 Private MD: Kuldeep Thomas C ED Physician Conrad Parmar HPI: 10/06 05:19 This 59 yrs old Black Male presents to ER via Ambulatory with complaints of Flank Pain, ja Chest Congestion, Sore Throat. 05:19 The patient complains of pain in the left mid back. The pain does not radiate. Onset: ja The symptoms/episode began/occurred 5 day(s) ago. Modifying factors: The symptoms are alleviated by nothing. Associated signs and symptoms: The patient has no apparent associated signs or symptoms. Severity of pain: At its worst the pain was mild in the emergency department the pain is unchanged. The patient has not experienced similar symptoms in the past. Historical: - Allergies: 04:50 No Known Allergies; aa1 - Home Meds: 04:50 olmesartan Oral 1 tab as needed [Active]; aa1 - PMHx: 04:50 Hypertension; aa1 - PSHx: 04:50 None; aa1 - Immunization history:: Flu vaccine is up to date. - Social history:: Smoking status: Patient/guardian denies using tobacco. - Ebola Screening: : Patient denies exposure to infectious person Patient denies travel to an Ebola-affected area in the 21 days before illness onset. - Family history:: not pertinent. ROS: 05:19 Constitutional: Negative for fever, chills, and weight loss, Eyes: Negative for injury, ja pain, redness, and discharge, ENT: Negative for injury, pain, and discharge, Neck: Negative for injury, pain, and swelling, Cardiovascular: Negative for chest pain, palpitations, and edema, Abdomen/GI: Negative for abdominal pain, nausea, vomiting, diarrhea, and constipation, Back: Negative for injury and pain, : Negative for injury, bleeding, discharge, and swelling, MS/Extremity: Negative for injury and deformity, Skin: Negative for injury, rash, and discoloration, Neuro: Negative for headache, weakness, numbness, tingling, and seizure, Psych: Negative for depression, anxiety, suicide ideation, homicidal ideation, and hallucinations, Allergy/Immunology: Negative for hives, rash, and allergies, Endocrine: Negative for neck swelling, polydipsia, polyuria, polyphagia, and marked weight changes, Hematologic/Lymphatic: Negative for swollen nodes, abnormal bleeding, and unusual bruising. 05:19 Respiratory: Positive for cough, with green sputum. Exam: 05:19 Constitutional: This is a well developed, well nourished patient who is awake, alert, ja and in no acute distress. Head/Face: Normocephalic, atraumatic. Eyes: Pupils equal round and reactive to light, extra-ocular motions intact. Lids and lashes normal. Conjunctiva and sclera are non-icteric and not injected. Cornea within normal limits. Periorbital areas with no swelling, redness, or edema. ENT: Nares patent. No nasal discharge, no septal abnormalities noted. Tympanic membranes are normal and external auditory canals are clear. Oropharynx with no redness, swelling, or masses, exudates, or evidence of obstruction, uvula midline. Mucous membranes moist. Neck: Trachea midline, no thyromegaly or masses palpated, and no cervical lymphadenopathy. Supple, full range of motion without nuchal rigidity, or vertebral point tenderness. No Meningismus. Chest/axilla: Normal chest wall appearance and motion. Nontender with no deformity. No lesions are appreciated. Cardiovascular: Regular rate and rhythm with a normal S1 and S2. No gallops, murmurs, or rubs. Normal PMI, no JVD. No pulse deficits. Abdomen/GI: Soft, non-tender, with normal bowel sounds. No distension or tympany. No guarding or rebound. No evidence of tenderness throughout. Back: No spinal tenderness. No costovertebral tenderness. Full range of motion. Skin: Warm, dry with normal turgor. Normal color with no rashes, no lesions, and no evidence of cellulitis. MS/ Extremity: Pulses equal, no cyanosis. Neurovascular intact. Full, normal range of motion. Neuro: Awake and alert, GCS 15, oriented to person, place, time, and situation. Cranial nerves II-XII grossly intact. Motor strength 5/5 in all extremities. Sensory grossly intact. Cerebellar exam normal. Normal gait. Psych: Awake, alert, with orientation to person, place and time. Behavior, mood, and affect are within normal limits. 05:19 Respiratory: the patient does not display signs of respiratory distress, Respirations: normal, Breath sounds: are clear throughout, no bronchial sounds, no decreased breath sounds, no rales, rhonchi, no stridor, no wheezing. 05:19 Musculoskeletal/extremity: DVT Exam: No signs of deep vein thrombosis. no pain, no swelling, no tenderness, negative Homans' sign noted on exam, no appreciated bluish discoloration, no erythema, no increased warmth. Vital Signs: 04:36 BP 156 / 98; Pulse 65; Resp 17; Temp 97.6(TE); Pulse Ox 100% on R/A; rv 04:50 Weight 103.42 kg (R); Height 5 ft. 10 in. (177.80 cm); aa1 06:27 BP 130 / 80; Pulse 66; Resp 16; Pulse Ox 100% on R/A; rv 04:50 Body Mass Index 32.71 (103.42 kg, 177.80 cm) aa1 MDM: 04:38 Patient medically screened. [facility] 05:21 Data reviewed: vital signs, nurses notes, lab test result(s), radiologic studies, plain [facility] films. 10/06 05:17 Order name: Flu [facility] 10/06 05:17 Order name: Urine Culture [facility] 10/06 05:17 Order name: Urine Dipstick-Ancillary (obtain specimen); Complete Time: 05:33 [facility] 10/06 05:17 Order name: Chest Pa And Lat (2 Views) XRAY [facility] 10/06 05:34 Order name: Urine Dipstick--Ancillary (enter results) mt Administered Medications: 05:33 Drug: Zithromax 500 mg Route: PO; rr5 Disposition: 10/06/19 06:03 Discharged to Home. Impression: Acute upper respiratory infection, unspecified, Bronchitis, not specified as acute or chronic. - Condition is Stable. - Discharge Instructions: Acute Bronchitis, Adult, Upper Respiratory Infection, Adult, Cool Mist Vaporizer, Cough, Adult, [id number], Cough, Adult. - Prescriptions for Claritin 10 mg Oral Tablet - take 1 tablet by ORAL route once daily As needed; 30 tablet. Medrol (Filippo) 4 mg Oral Tablets, Dose Pack - take 1 tablet by ORAL route as directed - follow package instructions; 1 packet. Zithromax 500 mg Oral Tablet - take 1 tablet by ORAL route once daily for 4 days; 4 tablet. - Medication Reconciliation Form, Thank You Letter, Antibiotic Education, Prescription Opioid Use form. - Follow up: A Thomas; When: 2 - 3 days; Reason: Recheck today's complaints, Continuance of care, Re-evaluation by your physician. - Problem is new. - Symptoms have improved. Signatures: Dispatcher [employer] EDAlise Johnson RN RN aa1 Conrad Parmar MD MD cha Vicente, Ronaldo, RN RN rv Ben Frias RN RN rr5 Corrections: (The following items were deleted from the chart) 06:28 06:03 10/06/2019 06:03 Discharged to Home. Impression: Acute upper respiratory rv infection, unspecified; Bronchitis, not specified as acute or chronic. Condition is Stable. Discharge Instructions: Acute Bronchitis, Adult, Upper Respiratory Infection, Adult, Cool Mist Vaporizer, Cough, Adult, [id number], Cough, Adult. Prescriptions for Claritin 10 mg Oral Tablet - take 1 tablet by ORAL route once daily As needed; 30 tablet, Medrol (Filippo) 4 mg Oral Tablets, Dose Pack - take 1 tablet by ORAL route as directed - follow package instructions; 1 packet, Zithromax 500 mg Oral Tablet - take 1 tablet by ORAL route once daily for 4 days; 4 tablet. and Forms are Medication Reconciliation Form, Thank You Letter, Antibiotic Education, Prescription Opioid Use. Follow up: A Thomas; When: 2 - 3 days; Reason: Recheck today's complaints, Continuance of care, Re-evaluation by your physician. Problem is new. Symptoms have improved. ja
[2019-10-06 07:13] LABS: Urine Blood TRACE (NEG); Urine Glucose NEGATIVE (NEG); Urine Protein NEGATIVE (NEG); Urine pH 5.5 (5.0-7.0)
[2019-10-06 07:19] VITALS: TEMP 97.6; O2SAT 100
[2019-10-06 07:20] VITALS: BP 130/80
--- NOTE | 2019-10-06 08:16 | RAD REPORT ---
EXAM DESCRIPTION: RAD - Chest Pa And Lat (2 Views) - 10/06/2019 6:08 am CLINICAL HISTORY: COUGH, sore throat, left-sided rib pain COMPARISON: May 28 TECHNIQUE: PA and lateral views of the chest were obtained. FINDINGS: The lungs are slightly underinflated. Interstitial markings in the left base are slightly increased. The interstitial pattern overall has a mild prominence fractionally increased over compari son. Heart size is normal and central vasculature is within normal limits. No pleural effusion or pneu mothorax seen. No acute bony finding noted. No aortic abnormality. IMPRESSION: Questionable early left lung base pneumonia. Mild prominence of the interstitial pattern overall.
== END 2019-10-06 06:28 | disposition home or self-care (01) ==
LOC: ER 04:25
DX: J40 Bronchitis, not specified as acute or chronic (principal); I10 Essential (primary) hypertension
CPT/HCPCS: 71046; 81003; 87086; 87088; 87804; 99284

== ENCOUNTER 2021-09-11 23:35 | Emergency (ER) | payer BC ==
[2021-09-12 00:13] LABS: Absolute Lymphocytes (CBC) 1.2 K/uL (0.7-4.9); Basophils % 0.7 % (0-1.3); Hematocrit 42.4 % (39.6-49.0); MPV 9.1 fL (7.6-11.3); RBC Red Blood Cell Count 4.69 M/uL (4.33-5.43)
[2021-09-12 00:17] LABS: Protime INR 0.96
[2021-09-12 00:34] LABS: ALT/SGPT 26 U/L (12-78); AST/SGOT 14 U/L (15-37); Albumin 3.6 g/dL (3.4-5.0); Alkaline Phosphatase 73 U/L (45-117); BUN Blood Urea Nitrogen 18 mg/dL (7-18); Bicarbonate 27 mmol/L (21-32); Bilirubin Direct 0.1 mg/dL (0-0.2); Bilirubin Total 0.7 mg/dL (0.2-1.0); Glucose Level 116 mg/dL (74-106); Magnesium 2.1 mg/dL (1.8-2.4); NT PRO-BNP 21 pg/mL (<125); Protein, Total 7.2 g/dL (6.4-8.2); Sodium Level 141 mmol/L (136-145); Troponin (Emerg Dept Use Only) < 0.02 ng/mL (0.0-0.045)
[2021-09-12] MEDS ORDERED: LABETALOL 20 MG/4ML SYRINGE IV ONE (01:05)
--- NOTE | 2021-09-12 01:16 | EDPHYS ---
Physician Documentation [facility] Name: Alton Cloud Age: 61 yrs Sex: Male : 1960 Arrival Date: 09/11/2021 Time: 23:40 Bed 7 Private MD: ED Physician Sylvain Meza HPI: 09/12 00:00 This 61 yrs old Black Male presents to ER via Ambulatory with complaints of Dizziness, sp3 High Blood Pressure. 00:00 11-year-old male with history of hypertension on as needed medications presents to the [facility] ED for near syncope/dizziness, and hypertension readings were in the 180/90 range at home. Patient took his as needed medications which brought the blood pressure down to 135 but a few hours later systolically was back up to 189. Patient has no other symptoms and is not have a headache, chest pain, shortness of breath, neck pain, nausea, vomiting, diarrhea, weakness, sensory changes, since full syncope, any other critical findings this time. Remainder of ROS is negative. Patient states he only came to the ED because the blood pressure came back up despite taking his home medications. The near-syncope symptoms of been going on for the past 2 weeks.. Historical: - Allergies: 00:12 No Known Allergies; lp1 - Home Meds: 00:12 olmesartan 20 mg oral tab 1 tab once daily [Active]; propranolol 10 mg Oral tab twice a lp1 day [Active]; - PMHx: 00:41 Hypertension; lp1 - PSHx: 00:41 knee sx; lp1 - Immunization history:: Adult Immunizations up to date. - Social history:: Smoking status: Patient denies any tobacco usage or history of. ROS: 00:01 Constitutional: Negative for fever, chills, and weight loss, Eyes: Negative for injury, sp3 pain, redness, and discharge, ENT: Negative for injury, pain, and discharge, Neck: Negative for injury, pain, and swelling, Cardiovascular: Negative for chest pain, palpitations, and edema, Respiratory: Negative for shortness of breath, cough, wheezing, and pleuritic chest pain, Abdomen/GI: Negative for abdominal pain, nausea, vomiting, diarrhea, and constipation, Back: Negative for injury and pain, MS/Extremity: Negative for injury and deformity, Skin: Negative for injury, rash, and discoloration, Psych: Negative for depression, anxiety, suicide ideation, homicidal ideation, and hallucinations, Allergy/Immunology: Negative for hives, rash, and allergies. 00:01 All other systems are negative. Exam: 00:02 Constitutional: This is a well developed, well nourished patient who is awake, alert, sp3 and in no acute distress. Head/Face: Normocephalic, atraumatic. Eyes: Pupils equal round and reactive to light, extra-ocular motions intact. Lids and lashes normal. Conjunctiva and sclera are non-icteric and not injected. Cornea within normal limits. Periorbital areas with no swelling, redness, or edema. ENT: Nares patent. No nasal discharge, no septal abnormalities noted. External auditory canals are clear. Oropharynx with no redness, swelling, or masses, exudates, or evidence of obstruction, uvula midline. Mucous membranes moist. Neck: Trachea midline, no thyromegaly or masses palpated, and no cervical lymphadenopathy. Supple, full range of motion without nuchal rigidity, or vertebral point tenderness. No Meningismus. Chest/axilla: Normal chest wall appearance and motion. Nontender with no deformity. No lesions are appreciated. Cardiovascular: Regular rate and rhythm with a normal S1 and S2. No gallops, murmurs, or rubs. Normal PMI, no JVD. No pulse deficits. Respiratory: Lungs have equal breath sounds bilaterally, clear to auscultation and percussion. No rales, rhonchi or wheezes noted. No increased work of breathing, no retractions or nasal flaring. Abdomen/GI: Soft, non-tender, with normal bowel sounds. No distension or tympany. No guarding or rebound. No evidence of tenderness throughout. Back: No spinal tenderness. No costovertebral tenderness. Full range of motion. Skin: Warm, dry with normal turgor. Normal color with no rashes, no lesions, and no evidence of cellulitis. MS/ Extremity: Pulses equal, no cyanosis. Neurovascular intact. Full, normal range of motion. Neuro: Awake and alert, GCS 15, oriented to person, place, time, and situation. Cranial nerves II-XII grossly intact. Motor strength 5/5 in all extremities. Sensory grossly intact. Cerebellar exam normal. Normal gait. Vital Signs: 09/11 23:40 BP 184 / 106; Pulse 60; Resp 18; Temp 98.4(O); Pulse Ox 100% on R/A; Weight 99.79 kg lp1 (R); Height 5 ft. 10 in. (177.80 cm); Pain 0/10; 09/12 00:19 BP 155 / 98; Pulse 59; Resp 16; Pulse Ox 99% on R/A; lp1 00:32 BP 121 / 84; Pulse 60; Resp 13; Pulse Ox 99% on R/A; lp1 00:45 BP 126 / 84; Pulse 62; Resp 16; Pulse Ox 99% on R/A; lp1 01:26 BP 117 / 81; Pulse 56; Resp 18; Pulse Ox 99% on R/A; lp1 09/11 23:40 Body Mass Index 31.57 (99.79 kg, 177.80 cm) lp1 MDM: 09/11 23:44 Patient medically screened. sp3 09/12 00:02 Data reviewed: vital signs, nurses notes. ED course: 61-year-old male with hypertensive sp3 urgency. Will assess for endorgan damage with a CT scan, EKG, laboratory values assessing creatinine and troponin, and general observation. We will also give labetalol 10 mg IV bring blood pressure down and reevaluate. At this point I do not believe patient is having intracranial hemorrhage, acute coronary syndrome, vascular pathology including thoracic aortic aneurysm, sepsis, shock, CVA, any other critical findings at this time. Disposition likely discharge pending resolution of hypertension and negative work-up.. 01:15 ED course: CT scan as well as laboratory values are within normal limits. Blood sp3 pressure dropped before labetalol was given therefore was held. At this point since symptoms have resolved we will discharge patient home with PCP follow-up.. 09/11 23:59 Order name: Basic Metabolic Panel sp3 09/11 23:59 Order name: CBC with Diff sp3 09/11 23:59 Order name: LFT's; Complete Time: 01:03 sp3 09/11 23:59 Order name: Magnesium; Complete Time: 01:03 sp3 09/11 23:59 Order name: NT PRO-BNP; Complete Time: 01:03 sp3 09/11 23:59 Order name: PT-INR; Complete Time: 01:03 sp3 09/11 23:59 Order name: Troponin (emerg Dept Use Only); Complete Time: 01:03 sp3 09/11 23:59 Order name: XRAY Chest (1 view) sp3 09/11 23:59 Order name: EKG; Complete Time: 00:00 sp3 09/11 23:59 Order name: Cardiac monitoring; Complete Time: 00:11 sp3 09/11 23:59 Order name: CT Head Brain wo Cont sp3 09/12 00:00 Order name: Basic Metabolic Panel; Complete Time: 01:03 EDMS 09/12 00:00 Order name: CBC with Automated Diff; Complete Time: 01:03 EDMS 09/11 23:59 Order name: EKG - Nurse/Tech; Complete Time: 00:19 sp3 09/11 23:59 Order name: IV Saline Lock; Complete Time: 00:11 sp3 09/11 23:59 Order name: Labs collected and sent; Complete Time: 00:11 sp3 09/11 23:59 Order name: O2 Per Protocol; Complete Time: 00:11 sp3 09/11 23:59 Order name: O2 Sat Monitoring; Complete Time: 00:11 sp3 Administered Medications: 01:20 Not Given (Hemodynamic Parameters): Labetalol 10 mg IVP once lp1 Disposition Summary: 09/12/21 01:15 Discharge Ordered Location: Home sp3 Condition: Stable sp3 Diagnosis - Hypertensive urgency sp3 Followup: sp3 - With: Private Physician - When: - Reason: Recheck today's complaints Discharge Instructions: - Discharge Summary Sheet sp3 - Hypertension, Adult sp3 Forms: - Medication Reconciliation Form sp3 - Thank You Letter sp3 - Antibiotic Education sp3 - Prescription Opioid Use sp3 Signatures: Dispatcher [employer] EDDelmi Marcos RN RN lp1 Sylvain Meza MD MD sp3 Corrections: (The following items were deleted from the chart) 00:41 00:41 Home Meds: olmesartan 20 mg oral tab once daily; lp1 lp1
--- NOTE | 2021-09-12 01:16 | ER ---
Nurse's Notes [facility] Name: Alton Cloud Age: 61 yrs Sex: Male : 1960 Arrival Date: 09/11/2021 Time: 23:40 Bed 7 Private MD: Diagnosis: Hypertensive urgency Presentation: 09/11 23:40 Chief complaint: Patient states: Reports increased dizziness tonight, checked BP at lp1 home, reading of 189/101; Patient has hx of HTN, takes prescribed medications as needed for high BP; Denies chest pain, shortness of breath, vision changes, headaches. 23:40 Coronavirus screen: At this time, the client does not indicate any symptoms associated lp1 with coronavirus-19. Ebola Screen: No symptoms or risks identified at this time. Initial Sepsis Screen: Does the patient meet any 2 criteria? No. Patient's initial sepsis screen is negative. Does the patient have a suspected source of infection? No. Patient's initial sepsis screen is negative. Risk Assessment: Do you want to hurt yourself or someone else? Patient reports no desire to harm self or others. Onset of symptoms was September 12, 2021. 23:40 Method Of Arrival: Ambulatory lp1 23:40 Acuity: PRAKASH 3 lp1 Historical: - Allergies: 09/12 00:12 No Known Allergies; lp1 - Home Meds: 00:12 olmesartan 20 mg oral tab 1 tab once daily [Active]; propranolol 10 mg Oral tab twice a lp1 day [Active]; - PMHx: 00:41 Hypertension; lp1 - PSHx: 00:41 knee sx; lp1 - Immunization history:: Adult Immunizations up to date. - Social history:: Smoking status: Patient denies any tobacco usage or history of. Screenin:32 Abuse screen: Denies threats or abuse. Denies injuries from another. Nutritional lp1 screening: No deficits noted. Tuberculosis screening: No symptoms or risk factors identified. Fall Risk None identified. Assessment: 00:15 General: Appears in no apparent distress. Behavior is calm, cooperative, appropriate lp1 for age. Pain: Denies pain. Neuro: Level of Consciousness is awake, alert, obeys commands, Oriented to person, place, time, situation, Gait is steady, Pupils are PERRLA, Intact. Cardiovascular: Patient's skin is warm and dry. Rhythm is sinus rhythm. Respiratory: Respiratory effort is even, unlabored. GI: No signs and/or symptoms were reported involving the gastrointestinal system. : No signs and/or symptoms were reported regarding the genitourinary system. EENT: No signs and/or symptoms were reported regarding the EENT system. Derm: Skin is intact, Skin is dry, Skin is normal. Musculoskeletal: No deficits noted. 01:26 Reassessment: Patient appears in no apparent distress at this time. Patient is alert, lp1 oriented x 3, equal unlabored respirations, skin warm/dry/pink. Patient denies pain at this time. Vital Signs: 09/11 23:40 BP 184 / 106; Pulse 60; Resp 18; Temp 98.4(O); Pulse Ox 100% on R/A; Weight 99.79 kg lp1 (R); Height 5 ft. 10 in. (177.80 cm); Pain 0/10; 09/12 00:19 BP 155 / 98; Pulse 59; Resp 16; Pulse Ox 99% on R/A; lp1 00:32 BP 121 / 84; Pulse 60; Resp 13; Pulse Ox 99% on R/A; lp1 00:45 BP 126 / 84; Pulse 62; Resp 16; Pulse Ox 99% on R/A; lp1 01:26 BP 117 / 81; Pulse 56; Resp 18; Pulse Ox 99% on R/A; lp1 09/11 23:40 Body Mass Index 31.57 (99.79 kg, 177.80 cm) lp1 ED Course: 09/11 23:40 Patient arrived in ED. bp1 23:44 Sylvain Meza MD is Attending Physician. sp3 09/12 00:01 Delmi Duran, NGOC is Primary Nurse. lp1 00:11 Triage completed. lp1 00:11 Inserted saline lock: 20 gauge in right antecubital area, using aseptic technique. ds4 Blood collected. 00:11 Arm band placed on. lp1 00:23 XRAY Chest (1 view) In Process Unspecified. EDMS 00:32 Patient has correct armband on for positive identification. Call light in reach. lp1 progressive die maker on. Pulse ox on. NIBP on. 00:37 CT Head Brain wo Cont In Process Unspecified. EDMS 01:20 No provider procedures requiring assistance completed. IV discontinued, No lp1 redness/swelling at site. Pressure dressing applied. Administered Medications: 01:20 Not Given (Hemodynamic Parameters): Labetalol 10 mg IVP once lp1 Outcome: 01:15 Discharge ordered by . sp3 01:26 Discharged to home ambulatory, with significant other. lp1 01:26 Condition: good 01:26 Discharge instructions given to patient, significant other, Instructed on discharge instructions, follow up and referral plans. Demonstrated understanding of instructions, follow-up care. 01:26 Patient left the ED. lp1 Signatures: Dispatcher [employer] EDMS Delmi Duran RN RN lp1 Pb Calloway ds4 Kala Pemberton Setul, MD MD sp3 Corrections: (The following items were deleted from the chart) 00:41 00:41 Home Meds: olmesartan 20 mg oral tab once daily; lp1 lp1
[2021-09-12 01:33] VITALS: TEMP 98.4
[2021-09-12 01:35] VITALS: O2SAT 99
[2021-09-12 01:39] VITALS: BP 117/81
--- NOTE | 2021-09-12 08:26 | RAD REPORT ---
EXAM DESCRIPTION: RAD - Chest Single View - 09/12/2021 12:23 am CLINICAL HISTORY: HTN COMPARISON: September 2019 TECHNIQUE: AP portable chest image was obtained 09/12/2021 12:23 am . FINDINGS: Lungs are clear. Heart and vasculature are normal. No measurable pleural effusion and no p neumothorax. No acute bony abnormality seen. No acute aortic findings suspected. IMPRESSION: No acute cardiopulmonary process. No significant change from comparison study.
--- NOTE | 2021-09-13 10:16 | RAD REPORT ---
EXAM DESCRIPTION: CT - Head Brain Wo Cont - 09/12/2021 1:22 am CLINICAL HISTORY: HTN urgency COMPARISON: None. TECHNIQUE: CT HEAD WITHOUT IV CONTRAST on 09/11/2021 11:59 PM CDT This exam was performed according to our departmental dose-optimization program, which includes autom ated exposure control, adjustment of the mA and/or kV according to patient size and/or use of iterati ve reconstruction technique. FINDINGS: There is no acute hemorrhage, mass effect or midline shift. Russ-white differentiation is preserved. There is no hydrocephalus. There is no significant volume loss for age. The calvarium is intact. Orbits and globes are unremarkable. The paranasal sinuses are clear. Mastoid air cells are clear. IMPRESSION: No acute intracranial findings. Electronically signed by: Morgan Mendoza MD 09/12/2021 12:50 AM CDT Due to temporary technical issues with the PACS/Fluency reporting system, reports are being signed by the in house radiologists without review as a courtesy to insure prompt reporting. The interpreting radiologist is fully responsible for the content of the report.
== END 2021-09-12 01:26 | disposition home or self-care (01) ==
LOC: ER 23:35
DX: I16.0 Hypertensive urgency (principal); I10 Essential (primary) hypertension
CPT/HCPCS: 36415; 70450; 71045; 80048; 80076; 83735; 83880; 84484; 85025; 85610; 93005; 99284

== ENCOUNTER 2025-08-12 05:05 | Emergency (ER) | payer BC ==
--- OUTSIDE RECORDS SUMMARY | 2025-08-12 05:09 | XMS REPORT | Continuity of Care Document ---
Author Name Unknown Address [address] [facility] [address] [place] [address] [facility] [place] Address [address] [facility]. [address] [place] [address] Care Team Providers Care Sill Worker Name Role Phone Jeremiah Morales Attending Clinician Unavailable Tutu Attending Clinician Unavaila Jeremiah Mancia Admitting Clinician Unavailable Tutu Admitting Clinician Low cifuentes Payers Payer Name Policy Type Policy Number Effective Date Expirati on Date Source [place] [id number] 2016 00:00:00 Problems Condition Name Condition Details Condition Category Status Onset Date Resolution Date Last Treatment Date Treating Clinician Comments Source Arthrofibr osis of left knee Arthrofibr osis of Left Knee Problem Active 07-31 00:00: 00 [facility] Osteoarthr itis of left knee joint Osteoarthr itis of Left Knee Joint Problem Active 2021-11 00:00: 00 [facility] Pain of left knee joint Pain of Left Knee Joint Problem Active 2021-11 00:00: 00 [facility] Allergies, Adverse Reactions, Alerts Allergy Name Allergy Type Status Severity Reaction(s) Onset Date Inactive Date Treating Clinician Comments Source No Known Drug Allergie s DA Active U 9-18 00:00: 00 [facility] [place] [facility] No Known Allergie s DA Active U 6-17 00:00: 00 [facility] [place] [facility] Social History Smoking Status Start Date Stop Date Source Never Smoker [facility] Medications Ordered Medication Name Filled Medication Name Start Date Stop Date Current Medication? Ordering Clinician Indication Dosage Frequency Signature (SIG) Comments Components Source Paxlovid 300 mg (150 mg x 2)-100 mg tablets in a dose pack TK 2 NIRMATRELVI R TS AND 1 RITONAVIR T TOGETHER PO BID FOR 5 DAYS Paxlovid 300 mg (150 mg x 2)-100 mg tablets in a dose pack TK 2 NIRMATRELVI R TS AND 1 RITONAVIR T TOGETHER PO BID FOR 5 DAYS No Paxlovid 300 mg (150 mg x 2)-100 mg tablets in a dose pack TK 2 NIRMATRELV IR TS AND 1 RITONAVIR T TOGETHER PO BID FOR 5 DAYS [facility] sildenafil 100 mg tablet TAKE ONE (1) TABLET(S) BY MOUTH EVERY 36 HOURS NEEDED FOR SEX. sildenafil 100 mg tablet TAKE ONE (1) TABLET(S) BY MOUTH EVERY 36 HOURS NEEDED FOR SEX. No sildenafil 100 mg tablet TAKE ONE (1) TABLET(S) BY MOUTH EVERY 36 HOURS NEEDED FOR SEX. [facility] tadalafil 20 mg tablet TAKE ONE (1) TABLET(S) BY MOUTH EVERY 36 HOURS NEEDED. tadalafil 20 mg tablet TAKE ONE (1) TABLET(S) BY MOUTH EVERY 36 HOURS NEEDED. No tadalafil 20 mg tablet TAKE ONE (1) TABLET(S) BY MOUTH EVERY 36 HOURS NEEDED. [facility] tizanidine 4 mg tablet TAKE 1 TABLET BY MOUTH EVERY DAY AT BEDTIME tizanidine 4 mg tablet TAKE 1 TABLET BY MOUTH EVERY DAY AT BEDTIME No 1 Q1D tizanidine 4 mg tablet TAKE 1 TABLET BY MOUTH EVERY DAY AT BEDTIME [facility] tramadol 50 mg tablet Take 1 tablet every 6 hours by oral route as needed for 7 days, for acute pain. tramadol 50 mg tablet Take 1 tablet every 6 hours by oral route as needed for 7 days, for acute pain. No 1 Q6H tramadol 50 mg tablet Take 1 tablet every 6 hours by oral route as needed for 7 days, for acute pain. [facility] doxycycline hyclate 100 mg tablet TAKE 1 TABLET BY MOUTH TWICE DAILY FOR 7 DAYS doxycycline hyclate 100 mg tablet TAKE 1 TABLET BY MOUTH TWICE DAILY FOR 7 DAYS No 1 BID doxycyclin e hyclate 100 mg tablet TAKE 1 TABLET BY MOUTH TWICE DAILY FOR 7 DAYS [facility] oxycodone-a cetaminophe n 5 mg-325 mg tablet TAKE 1 TABLET BY MOUTH EVERY 6 HOURS FOR 5 DAYS NEEDED FOR ACUTE PAIN oxycodone-a cetaminophe n 5 mg-325 mg tablet TAKE 1 TABLET BY MOUTH EVERY 6 HOURS FOR 5 DAYS NEEDED FOR ACUTE PAIN No oxycodone- acetaminop hen 5 mg-325 mg tablet TAKE 1 TABLET BY MOUTH EVERY 6 HOURS FOR 5 DAYS NEEDED FOR ACUTE PAIN [facility] promethazin e 25 mg tablet Take 1 tablet(s) EVERY 8 HOURS by oral route as needed for nausea/vomi ting promethazin e 25 mg tablet Take 1 tablet(s) EVERY 8 HOURS by oral route as needed for nausea/vomi ting No promethazi ne 25 mg tablet Take 1 tablet(s) EVERY 8 HOURS by oral route as needed for nausea/vom iting [facility] meloxicam 15 mg tablet TAKE 1 TABLET BY MOUTH EVERY DAY WTIH A MEAL meloxicam 15 mg tablet TAKE 1 TABLET BY MOUTH EVERY DAY WTIH A MEAL No meloxicam 15 mg tablet TAKE 1 TABLET BY MOUTH EVERY DAY WTIH A MEAL [facility] amoxicillin 500 mg capsule TAKE 1 CAPSULE BY MOUTH THREE TIMES DAILY WITH MEALS amoxicillin 500 mg capsule TAKE 1 CAPSULE BY MOUTH THREE TIMES DAILY WITH MEALS No amoxicilli n 500 mg capsule TAKE 1 CAPSULE BY MOUTH THREE TIMES DAILY WITH MEALS [facility] amoxicillin 500 mg tablet TAKE 3 TABLETS BY MOUTH FOR 3 DAYS amoxicillin 500 mg tablet TAKE 3 TABLETS BY MOUTH FOR 3 DAYS No amoxicilli n 500 mg tablet TAKE 3 TABLETS BY MOUTH FOR 3 DAYS [facility] prednisone 10 mg tablet Take 1 tablet every day by oral route. prednisone 10 mg tablet Take 1 tablet every day by oral route. No 1 Q1D prednisone 10 mg tablet Take 1 tablet every day by oral route. [facility] olmesartan 5 mg tablet TAKE 1 TABLET BY MOUTH DAILY olmesartan 5 mg tablet TAKE 1 TABLET BY MOUTH DAILY No olmesartan 5 mg tablet TAKE 1 TABLET BY MOUTH DAILY [facility] propranolol 10 mg tablet propranolol 10 mg tablet No propranolo l 10 mg tablet [facility] amlodipine 2.5 mg tablet TAKE 1 TABLET BY MOUTH DAILY AT BEDTIME amlodipine 2.5 mg tablet TAKE 1 TABLET BY MOUTH DAILY AT BEDTIME No amlodipine 2.5 mg tablet TAKE 1 TABLET BY MOUTH DAILY AT BEDTIME [facility] aspirin 81 mg tablet,concepción yed release Take 1 tablet twice a day by oral route. aspirin 81 mg tablet,concepción yed release Take 1 tablet twice a day by oral route. No 1 BID aspirin 81 mg tablet,del ayed release Take 1 tablet twice a day by oral route. [facility] bromphenira mine-pseudo ephedrine-D M 2 mg-30 mg-10 mg/5 mL oral syrup TAKE 5 ML BY MOUTH EVERY 6 HOURS NEEDED FOR COUGH/CONGE STION bromphenira mine-pseudo ephedrine-D M 2 mg-30 mg-10 mg/5 mL oral syrup TAKE 5 ML BY MOUTH EVERY 6 HOURS NEEDED FOR COUGH/CONGE STION No bromphenir amine-pseu doephedrin e-DM 2 mg-30 mg-10 mg/5 mL oral syrup TAKE 5 ML BY MOUTH EVERY 6 HOURS NEEDED FOR COUGH/MELANIE ESTION [facility] doxycycline hyclate 100 mg capsule TAKE 1 CAPSULE BY MOUTH TWICE DAILY FOR 7 DAYS doxycycline hyclate 100 mg capsule TAKE 1 CAPSULE BY MOUTH TWICE DAILY FOR 7 DAYS No doxycyclin e hyclate 100 mg capsule TAKE 1 CAPSULE BY MOUTH TWICE DAILY FOR 7 DAYS [facility] Hibiclens 4 % topical liquid Apply 1 application every day by topical route for 5 days. Hibiclens 4 % topical liquid Apply 1 application every day by topical route for 5 days. No 1applic ation(s ) Q1D Hibiclens 4 % topical liquid Apply 1 applicatio n every day by topical route for 5 days. [facility] mupirocin 2 % topical ointment APPLY A SMALL AMOUNT TO EACH NOSTRIL DAILY FOR 5 DAYS BEFORE SURGERY mupirocin 2 % topical ointment APPLY A SMALL AMOUNT TO EACH NOSTRIL DAILY FOR 5 DAYS BEFORE SURGERY No mupirocin 2 % topical ointment APPLY A SMALL AMOUNT TO EACH NOSTRIL DAILY FOR 5 DAYS BEFORE SURGERY [facility] Immunizations Ordered Immunization Name Filled Immunization Name Date Status Comments Source influenza, unspecified formulation influenza, unspecified formulation Unknown Completed [facility] Vital Signs Vital Name Observation Time Observation Value [facility] 2024-07-23 00:00:00 70 [in_i] [facility] Height 2024-07-08 00:00:00 70 [in_i] [facility] Height 2024-06-21 00:00:00 70 [in_i] [facility] Body Weight 2024-06-17 00:00:00 210 [lb_av] [facility] Height 2024-06-17 00:00:00 70 [in_i] [facility] BMI (Body Mass Index) 2024-06-17 00:00:00 30.1 kg/m2 [facility] Height 2022-10-27 00:00:00 70 [in_i] [facility] BMI (Body Mass Index) 2022-10-27 00:00:00 30.1 kg/m2 [facility] Body Weight 2022-10-27 00:00:00 210 [lb_av] [facility] Height 2022-10-14 00:00:00 70 [in_i] [facility] BMI (Body Mass Index) 2022-10-14 00:00:00 30.1 kg/m2 [facility] Body Weight 2022-10-14 00:00:00 210 [lb_av] [facility] Procedures Procedure Date / Time Performed Performing Clinician Source XR, knee, 1 or 2 view 2024-10-25 00:00:00 [facility] Total Replacement of Left Knee Joint 2024-06-04 00:00:00 [facility] XR, knee, 1 or 2 view 2023-11-17 00:00:00 [facility] XR, knee, 1 or 2 view 2022-10-14 00:00:00 [facility] Colonoscopy 2020-12-18 00:00:00 [facility] Arthroscopy of Knee [facility] Encounters Start Date/Time End Date/Time Encounter Type Admission Type Attending Clinicians Care Facility Care Department Encounter ID Source 2024-01-18 08:00:00 Inpatient Jeremiah Perez [facility] [id number] [facility] 2024-10-25 00:00:00 2024-10-25 00:00:00 Jeremiah Morales MD: [address] [place] [address] , Ph. [phone] [place] [facility] [place] [id number] [facility] 2024-09-05 00:00:00 2024-09-05 00:00:00 Jeremiah Morales MD: [address] [place] [address] , Ph. [phone] [place] [facility] [id number] [facility] 2024-08-08 00:00:00 2024-08-08 00:00:00 Jeremiah Morales MD: [address] [place] [address] , Ph. [phone] [place] [facility] [place] [id number] [facility] 2024-08-01 05:17:00 2024-08-01 05:17:00 [facility] [id number] [facility] [place] [facility] 2024-07-23 00:00:00 2024-07-23 00:00:00 Samy Naomi Ochoa, MONOMER RECOVERY OPERATOR: [address] [place] [address] , Ph. [phone] [place] [facility] [id number] [facility] 2024-07-08 00:00:00 2024-07-08 00:00:00 Samy Ochoa, MONOMER RECOVERY OPERATOR: [address] [place] [address] , Ph. [phone] [place] [facility] [place] [id number] [facility] 2024-06-21 00:00:00 2024-06-21 00:00:00 Samy Naomi Ochoa, MONOMER RECOVERY OPERATOR: [address] [place] [address] , Ph. [phone] [place] [facility] [place] [id number] [facility] 2024-06-17 00:00:00 2024-06-17 00:00:00 Jeremiah Morales MD: [address] [place] [address] , Ph. [phone] [place] [facility] [place] [id number] [facility] 2024-06-04 06:49:00 2024-06-05 13:51:00 Inpatient Jeremiah Perez [facility] [id number] [facility] 2024-04-26 19:28:00 2024-04-26 19:28:00 Outpatient Jeremiah Morales [facility] [id number] [facility] 2023-11-17 00:00:00 2023-11-17 00:00:00 Jeremiah Morales MD: [address] [place] [address] , Ph. [phone] [facility] [place] [facility] [place] [facility] [place] [id number] [facility] 2022-10-27 00:00:00 2022-10-27 00:00:00 Jeremiah Morales MD: [address] [place] [address] , Ph. [phone] [facility] [place] [facility] [place] [facility] [place] [id number] [facility] 2022-10-14 00:00:00 2022-10-14 00:00:00 Jeremiah Morales MD: [address] [place] [address] , Ph. [phone] [facility] [place] [facility] [place] [facility] [place] [id number] [facility] Results Test Description Test Time Test Comments Results Result Co mments Source SPECIMEN COMMENT: POD #1Hemoglobin and Hematocrit panel - [id number] 04:38:00* Test Item Value Reference Range Interpretation Comme nts hemoglobin (test code = hemoglobin) 12.7 g/dL 12-16 hematocrit (test code = hematocrit) 37.2 % 37-47 performing lab: (test code = performing lab:) [facility] Medicine[facility]PREHENSIVE METABOLIC [id number] 15:15:00* Test Item Value Reference Range Interpretation Comme nts SODIUM (test code = NA) 139 mmol/L 136-145 N POTASSIUM (test code = K) 3.9 mmol/L 3.5-5.1 N CHLORIDE (test code = CL) 101.0 mmol/L 98-107 N CARBON DIOXIDE (test code = CO2) 29.8 mmol/L 21-32 N GLUCOSE (test code = GLU) 139 mg/dL 74-106 H BLOOD UREA NITROGEN (test code = BUN) 17 mg/dL 7-18 N GLOMERULAR FILTRATION RATE (test code = GFR) 82.6 >60 The Glomerular Filtration Rate is a calculated parameterbased on serum Creatinine, patient age and sex. GFR valuesless than 60 mL/min/1.73 square meters are indicative ofChronic Kidney Disease. Values less than 15 mL/min/1.73square meters indicate Kidney failure. The calculation forGFR is based on the CKD-EPI (2020) calculation. This formulais race indifferent and is the recommended formula for GFRby the National Kidney Foundation for Adults.The GFR will not calculate if the sex is unknown or if thepatient's age is <18 years. CREATININE (test code = CREAT) 1.03 mg/dL 0.70-1.30 N TOTAL PROTEIN (test code = PROT) 7.0 g/dL 6.4-8.2 N ALBUMIN (test code = ALB) 3.7 g/dL 3.4-5.0 N GLOBULIN (test code = GLOB) 3.3 g/dL 2.2-4.2 N ALBUMIN/GLOBULIN RATIO (test code = A/G) 1.1 0.7-2.0 N CALCIUM (test code = CA) 9.2 mg/dL 8.5-10.1 N BILIRUBIN TOTAL (test code = BILT) 1.20 mg/dL 0.2-1.00 H SGOT/AST (test code = AST) 8.0 U/L 15-37 L SGPT/ALT (test code = ALT) 25.0 U/L 16-63 N ALKALINE PHOSPHATASE TOTAL (test code = ALKP) 76 U/L 46-116 N CBC W/AUTO [id number] 15:04:00* Test Item Value Reference Range Interpretation Comme nts WHITE BLOOD CELL (test code = WBC) 4.4 K/mm3 5.5-11.0 L RED BLOOD CELL (test code = RBC) 4.68 M/mm3 4.2-5.4 N HEMOGLOBIN (test code = HGB) 14.4 g/dL 12-16 N HEMATOCRIT (test code = HCT) 42.4 % 37-47 N MEAN CELL VOLUME (test code = MCV) 91 fL 80-98 N MEAN CELL HGB (test code = MCH) 30.8 pg 27-34 N MEAN CELL HGB CONCENTRATION (test code = MCHC) 34.0 g/dL 30.8-34.1 N RED CELL DISTRIBUTION WIDTH (test code = RDW) 13.8 % 11-16 N PLT (test code = PLT) 209 K/mm3 130-400 N MEAN PLATELET VOLUME (test c ode = MPV) 11.2 fL 8.9-12.1 N NEUTROPHIL % (test code = NT%) 54.4 % 45-70 N LYMPHOCYTE % (test code = LY%) 34.7 % 20-40 N MONOCYTE % (test code = MO%) 8.7 % 3-10 N EOSINOPHIL % (test code = EO%) 1.1 % 1-5 N BASOPHIL % (test code = BA%) 0.9 % 0.0-1.1 N NEUTROPHIL # (test code = NT#) 2.38 K/mm3 2.00-7.50 N LYMPHOCYTE # (test code = LY#) 1.52 K/mm3 1.50-4.00 N MONOCYTE # (test code = MO#) 0.38 K/mm3 0.2-0.8 N EOSINOPHIL # (test code = EO#) 0.05 K/mm3 0.04-0.4 N BASOPHIL # (test code = BA#) 0.04 K/mm3 0.02-0.10 N MANUAL DIFF REQUIRED (test c ode = MDIFF) NO MANUAL DIFF NUCLEATED RED BLOOD CELL (te st code = NRBC) 0 % 0-0 N Notes Date/Time Note Provider Source 2024-08-01 07:11:00 [id number] [place] [address] PATIENT NAME: RHONDA CLOUD ADMIT DATE: 08/01/24 ACCOUNT NO: [id number] ROOM NO: AGE: 64 REPORT TYPE: OPERATIVE REPORT SEX: M ADMITTING PHYSICIAN: ATTENDING PHYSICIAN:Jeremiah Morales MD OPERATION DATE: 08/01/2024 PREOPERATIVE DIAGNOSIS: Left knee arthrofibrosis. POSTOPERATIVE DIAGNOSIS: Left knee arthrofibrosis, M24.662. OPERATIVE PROCEDURES PERFORMED: 1. Left knee manipulation under anesthesia, . 2. Ultrasound-guided intraarticular injection, left knee, . ANESTHESIA: General. TOURNIQUET TIME: None. ESTIMATED BLOOD LOSS: None. SURGEON: Jeremiah Morales M.D. CLINICAL INDICATIONS: Mr. Cloud is a 64-year-old male from [place], [place], who has had a prior total knee arthroplasty. He has had difficulty regaining the final 10 to 15 degrees of knee flexion and he is admitted for manipulation under anesthesia. OPERATIVE NARRATIVE: 1. MANIPULATION UNDER ANESTHESIA, LEFT TOTAL KNEE ARTHROPLASTY, . 2. ULTRASOUND-GUIDED INTRAARTICULAR INJECTION LEFT KNEE, . DESCRIPTION OF PROCEDURE: Mr. Cloud was brought to the operative suite after an adductor block had been placed in the holding area. The patient was placed in supine position on the hospital stretcher. Routine monitors were established. General anesthesia was delivered. After satisfactory muscle relaxation, manipulation under anesthesia was performed. Audible crepitus was noted. Passively, the patient had 135 degrees of flexion status post manipulation. The left knee was then aseptically prepped, and utilizing biplanar ultrasound guidance, the knee was injected with 120 mg of Depo-Medrol with Marcaine. Mr. Cloud was then taken to recovery room awake and alert without any anesthetic or operative complications. Dictated By: Jeremiah Morales MD Date Dictated: 08/01/2024 07:11:25 Date Transcribed: 08/01/2024 07:23:33 PATIENT NAME: ROHNDA CLOUD [facility] Receipt ID: [id number] Authenticated by Jeremiah Morales MD On 08/01/2024 09:19:14 AM at 0919 PATIENT NAME: RHONDA CLOUD [facility] 2024-08-01 05:55:00 [facility] Brief Op Note REPORT#:[id number] REPORT STATUS: Signed REPORT INITIALIZATION DATE:08/01/24 TIME: 05 PATIENT: RHONDA CLOUD UNIT #: [id number] ROOM/BED: : 62 AGE: 64 SEX: M ATTEND: Jeremiah Morales MD ADM AUTHOR: Jeremiah Morales MD REPT SERVICE DT/TIME: 08/01/24 0555 * ALL edits or amendments must be made on the electronic/computer document * Op/Inv Proc Note - Brief Pre-procedure diagnosis: Left knee arthrofibrosis Post-procedure diagnosis: same as pre procedure dx Procedures performed: LISA Primary Surgeon: Andrew Vmware Engineer(s): none Findings: as above Complications: none Estimated blood loss in ml's: none Specimens removed/altered: none at 0556 RPT #:[id number] [facility] OF [facility] 2024-07-30 12:41:00 [id number] [place] [address] PATIENT NAME: RHONDA CLOUD ADMIT DATE: ACCOUNT NO: [id number] ROOM NO: AGE: 64 REPORT TYPE: HISTORY AND PHYSICAL SEX: M ADMITTING PHYSICIAN: ATTENDING PHYSICIAN:Jeremiah Morales MD ADMISSION DATE: 08/01/2024 18:15:00 ADMITTING DIAGNOSIS: Left knee arthrofibrosis, M24.662. HISTORY OF PRESENT ILLNESS: Mr. Cloud is a 64-year-old male who is status post left total knee arthroplasty on June 05 of this year. He has had difficulty regaining full postoperative knee flexion despite appropriate nonoperative treatment. For this reason, he is admitted for manipulation with anesthesia with a concomitant intraarticular corticosteroid injection. PAST MEDICAL HISTORY: Hypertension. PREVIOUS SURGERIES: Knee arthroscopy, total knee arthroplasty. FAMILY HISTORY: Unremarkable. SOCIAL HISTORY: He does not smoke. He drinks occasionally. REVIEW OF SYSTEMS: Negative. ALLERGIES: NO ALLERGIES ARE LISTED. MEDICATIONS: Amlodipine, olmesartan, propranolol, and tadalafil. PHYSICAL EVALUATION: VITAL SIGNS: 5 feet 10 inches tall, 95.25 kg. EXTREMITIES: Examination of the left knee reveals a well-healed midline incision. He has 0 to 115 degrees of motion. There is no instability. His distal neurovascular status is intact. ASSESSMENT: Left knee arthrofibrosis. SURGICAL PLAN: Manipulation under anesthesia with a concomitant intraarticular corticosteroid injection. I have gone over at length with the patient the associated risk involved with this procedure. He understands these include but are not limited to bleeding, potential periprosthetic fracture, possible quadriceps tendon rupture, inability to gain further motion, deep vein thrombi leading to pulmonary emboli along with complications secondary to anesthesia. Furthermore, he understands that there are absolutely no guarantees or warranties that he will be pain free as a result of the procedure. He accepts these risks and gives his informed consent to proceed. PATIENT NAME: RHONDA CLOUD Dictated By: Jeremiah Morales MD Date Dictated: 07/30/2024 12:41:42 Date Transcribed: 07/30/2024 12:53:58 RLB/ROLF/SHA Receipt ID: [id number] Authenticated by Jeremiah Morales MD On 07/31/2024 06:36:59 AM at 0636 PATIENT NAME: RHONDA CLOUD [facility] 2024-06-05 11:44:00 [facility] Clinical Note REPORT#:[id number] REPORT STATUS: Signed REPORT INITIALIZATION DATE:06/05/24 TIME: 1144 PATIENT: RHONDA CLOUD UNIT #: [id number] [facility] AGE[facility] 64 SEX: M ATTEND: Jeremiah Morales MD ADM AUTHOR: William Landeros MD REPT SERVICE DT/TIME: 06/05/24 1144 * ALL edits or amendments must be made on the electronic/computer document * Clinical Note Note: [facility] William Marsh M.D. (cell text [phone]) Assessment/Plan 1.) Anemia of acute blood loss- .Hgb 12.7, asymptomatic. 2.) S/p Left TKA .acute multi-modal pain control and followup. Anticoagulation as per Dr. Morales 3.) Hypertension- .follow BP and hold Rxs if SBP<120. 4.) OsteoArthritis Hyperlipidemia EARL- .continue on Rx. * OK for DISCHARGE per Internal Medicine. Prior Events/Overnight: Uneventful. Chief Complaint: No significant complaints. Objective Vital Signs: Date Time Temp Pulse Resp B/P B/P Pulse O2 O2 Flow FiO2 Mean Ox Delivery Rate 06/05 0800 97 Room air 06/05 0702 97.9 73 15 137/81 99.8 96 Room air 06/05 0426 97.5 73 18 127/80 96.0 95 Room air 06/05 0142 95 Nasal 2 28 cannula 06/04 2318 98.1 88 18 126/74 91.2 95 Room air 06/04 2005 96 Nasal 2 28 cannula 06/04 1912 97.9 80 18 153/80 104.3 97 Room air 06/04 1631 97.0 73 16 146/84 104.8 95 Room air 06/04 1146 97.3 71 16 158/94 115.6 98 Nasal 3 cannula Gen: Alert, oriented, in mild discomfort Neck: No Masses, No Thyromegaly- CV: Regular Rate Rhythm / Edema- no significant Resp: Clear To Ascultation / Normal Respiratory Effort ABD: NonTender / NonDistended MS/Skin: No sign of compartment syndrome / +ankle DF/PF Other: Labs/X-ray: Laboratory Tests: 06/05 0438 Hematology Hgb (12 - 16 g/dL) 12.7 Hct (37 - 47 %) 37.2 William Marsh M.D. at 1734 RPT #:[id number] END OF REPORT [facility] 2024-06-05 08:15:00 [facility]) Discharge Summary REPORT#:[id number] REPORT STATUS: Signed REPORT INITIALIZATION DATE:06/05/24 TIME: 814 PATIENT: RHONDA CLOUD UNIT #: [id number] ROOM/BED: Y308-A : 64 AGE: 63 SEX: M ATTEND: Jeremiah Morales MD ADM AUTHOR: Samy Ochoa APRN REPT SERVICE DT/TIME: 06/05/2415 * ALL edits or amendments must be made on the electronic/computer document * General Information Discharge date: 06/05/24 Discharge diagnosis: Left knee osteoarthritis Hospital course: Discharge Diagnosis: Left Knee Degenerative Disease Procedure: Left Knee Arthroplasty Hospital Course and Findings The patient underwent the procedure without incident. Findings were significant for degenerative disease of the knee. The patient was hemodynamically and medically monitored during the postoperative period. Anticoagulation was instituted for postoperative DVT prophylaxis. The patient was progressively able to tolerate PO pain medications and the appropriate diet. Physical therapy was instituted, with a progressive ability to ambulate and perform exercises. The patient was eventually deemed stable and safe for discharge. Despite factors which projected a longer hospital stay, the patient fulfilled criteria for earlier than expected discharge, including control of pain, early mobilization with therapy, and a stable hemodynamic status. At discharge, the patient was comfortable, with a controlled pain level. There were no chest or abdominal symptoms present. Discharge physical examination demonstrated stable vital signs and no acute distress. The patient had an intact wound with no significant drainage, and no calf tenderness and a negative Nicole's sign bilaterally. There were no neurologic or vascular deficits or changes from the preoperative state. Disposition: Discharged to home Discharge Condition: Stable Instructions: Instruction sheet given to patient Activity: Ambulate with assistance, with weight-bearing as instructed in the hospital. Diet: As per preoperatively Prescriptions 1. Pain Medications: As per discharge prescription, with progressive weaning as pain decreases 2. Anticoagulation: As per discharge prescription, or PreOp anticoagulant, as discussed with patient 3. Physical Therapy: Will undergo PT for gait training, mobilization, nharb-by-icexhj, and strengthening. Patient was informed to that they need to arrange for therapy as quickly as possible. The importance of early advancement of lipxp-iz-fnjiaw with home exercises, and physical therapy was stressed to the patient. Follow-up Appointment: Patient instructed to arrange appointment for an office visit in 2 weeks Med Rec Med Rec Discharge meds: Continue taking these medications: OLMESARTAN (OLMESARTAN) 5 MG TAB 2.5 MILLIGRAM ORAL DAILY. [CHOLESTOFF PLUS ] Comments: SUPPLEMENT UBIDECARENONE (CO Q-10) 100 MG CAP 100 MILLIGRAM ORAL DAILY. [NATURE NUTRITION] Comments: TURMERIC/CHARMAINE [GELACIO] [SUPER BETA PROSTATE] [APPLE CIDER VINIGER] ACETAMINOPHEN ER (TYLENOL ARTHRITIS PAIN) 650 MG TAB.SA 650 MILLIGRAM ORAL EVERY 8 HR NEEDED. as needed for PAIN amLODIPine (NORVASC) 2.5 MG TAB 2.5 MILLIGRAM ORAL DAILY. Discharge Instructions PCP )( Discharge to: Home/Self Care Discharge Instructions Additional Discharge Routines: Attending Follow-Up, Wound/Dressing Care )( Diet: Resume Home Diet/Feeds, Regular )( Activity: Resume Normal Activity, As Tolerated )( Wound/dressing care: Do not submerge incision, Leave dressing in place, OK to shower tomorrow Follow-up Appointments Attending Physician: Attending Physician: Jeremiah Morales MD Attending physician follow up timeframe: In 2-3 weeks Special instructions: Aspirin twice a day to prevent blood clot Remove teri wrap post op day three, ok to shower, cover with plastic wrap at 0816 at 0858 RPT #:[id number] END OF REPORT [facility] 2024-06-04 19:10:00 [facility] ([facility]) Clinical Note REPORT#:[id number] REPORT STATUS: Signed REPORT INITIALIZATION DATE:06/04/24 TIME: 1909 PATIENT: RHONDA CLOUD UNIT #: [id number] ROOM/BED: [address] : 62 AGE: 63 SEX: M ATTEND: Jeremiah Morales MD ADM AUTHOR: William Landeros MD REPT SERVICE DT/TIME: 06/04/241909 * ALL edits or amendments must be made on the electronic/computer document * Clinical Note Note: [facility] William Marsh MD (cell text [phone]) Internal Medicine Consult at request of : Dr. Jeremiah Morales Chief Complaint: left knee pain HPI: 63 yo M is now s/p Left Total Knee Arthroplasty by Dr. Morales. Mr. Cloud relates 7 years of progressive left knee pain (recently severe, 06/22), worse with activity, and with restricted motion at times in quality. He has failed conservative management. Comorbidities: see below. PmHx: . Osteoarthritis, hypertension, hyperlipidemia, sleep apnea- no CPAP, ALLERGY: Allergies: No Known Allergies (Coded, 04/29/24) Home Medications: Home Medications: OLMESARTAN 2.5 MG PO DAILY [CHOLESTOFF PLUS ] SUPPLEMENT UBIDECARENONE (CO Q-10) 100 MG PO DAILY [NATURE NUTRITION] TURMERIC/CHARMAINE [GELACIO] [SUPER BETA PROSTATE] [APPLE CIDER VINIGER] ACETAMINOPHEN ER (TYLENOL ARTHRITIS PAIN) 650 MG PO Q8H PRN PRN PAIN amLODIPine (NORVASC) 2.5 MG PO DAILY SgHx: . colonoscopy, knee surgery SHx: Tob: none FHx: .No significant hx of DVT/PE. Alcohol: occasionally Drugs: none Lives: alone . . Vitals: Vital Signs: Date Time Temp Pulse Resp B/P B/P Pulse O2 O2 Flow FiO2 Mean Ox Delivery Rate 06/04 1631 97.0 73 16 146/84 104.8 95 Room air 06/04 1146 97.3 71 16 158/94 115.6 98 Nasal 3 cannula 06/04 1131 Room air 06/04 1115 100 Nasal 2 28 cannula 06/04 1057 95.4 70 19 163/87 112.6 97 Nasal cannula 06/04 1030 97.9 63 15 148/84 100 Nasal 2 cannula 06/04 1015 97.9 62 15 145/83 100 Nasal 2 cannula 06/04 1005 Nasal 2 cannula 06/04 1000 97.9 72 16 150/83 100 Nasal 2 cannula 06/04 0945 64 14 142/76 100 Simple 6 mask 06/04 0938 Simple 6 mask 06/04 0937 97.9 61 14 143/71 100 Simple 6 mask 06/04 0658 97.9 67 18 173/99 97 Room air Gen: Alert, in mild discomfort. EYE: Nl lids conjunctiva. ENT: Nl ears Nose, nl lips,. Neck: Supple, nl thyroid, No masses. CV: Regular Rate Rhythm, no heave or significant murmur. Edema- none RESP: Clear to Auscultation, normal Respiratory effort. ABD: Soft, NonDistended,. LYM: No significant cervical Lymphadenopathy. MS: No sign of compartment syndrome, knee is wrapped, drain in place. NEURO: Nonfocal, grossly normal sensation of LE, +Ankle DF/PF . . Preop Labs(04/26/24): CBC:. Hgb 14.4 , Plt 209 , CHEM: Na 139 , K 3.9, Cr 1.03 (eGFR82 %), A1C% Ekg: Normal sinus rhythm, Increased R/S ratio in V1, consider early transition or posterior infarct . (medium to high risk of complications or morbidity) (major surgery) (IV sedative, meds) . Assessment Plan 1.) Anemia of Acute Blood Loss- .will recheck tomorrow. 2.) S/p Left TKA .acute multi-modal pain control and followup. Anticoagulation as per Dr. Morales 3.) Hypertension- .follow BP and hold Rxs if SBP<120. 4.) OsteoArthritis Hyperlipidemia EARL- .continue on Rx. . William Marsh M.D. Thanks! . . . . . G8417 BMI documented as above normal parameters and a f/u plan is documented G9903 - Patient screened for tobacco use AND identified as a tobacco non-user 1123F - ACP discussion - default code status while at [facility]. at [address] [facility] #:[id number] [facility] 09:27:00 [id number] [facility] [address] [address] PATIENT NAME: RHONDA CLOUD ADMIT DATE: 06/04/24 ACCOUNT NO: [id number] ROOM NO: Y.998 AGE: 63 REPORT TYPE: OPERATIVE REPORT SEX: M ADMITTING PHYSICIAN:Jeremiah Morales MD ATTENDING PHYSICIAN:Jeremiah Morales MD OPERATION DATE: 06/04/2024 PREOPERATIVE DIAGNOSIS: Left knee osteoarthritis. POSTOPERATIVE DIAGNOSIS: Left knee osteoarthritis, M17.12. OPERATIVE PROCEDURES PERFORMED: Left total knee arthroplasty, 00808. ANESTHESIA: General. TOURNIQUET TIME: 22 minutes. ESTIMATED BLOOD LOSS: Less than 25 mL. SURGEON: Jeremiah Morales M.D. [employer] OPERATIONS ENGINEER: YUNIOR Randolph/ALBERTO. OPERATIVE FINDINGS: As above. SURGICAL SPECIMENS SENT: None. IMPLANTS UTILIZED: DePuy Attune total knee system, size 7 left cruciate retaining femur, size 7 fixed bearing tibial tray, 7 x 7 mm medial stabilized tibial insert, 38 mm oval patella, all components cemented. CLINICAL INDICATIONS: Mr. Cloud is a 63-year-old male from [place], [place], who has been having progressive and severe pain involving his left knee for the past several years. His pain has become quite disabling over the past year. Due to his progressive disability and lack of response to nonoperative intervention, he is admitted for left total knee arthroplasty. OPERATIVE NARRATIVE: LEFT TOTAL KNEE ARTHROPLASTY, 23523. DESCRIPTION OF PROCEDURE: Mr. Cloud was brought to the operative suite, at which time he was placed in supine position on the OR table. Routine monitors were established. General anesthesia was delivered. After satisfactory induction of general anesthesia, a tourniquet was applied to the patient's left lower extremity per Mr. Randolph and the leg was circumferentially prepped and draped in usual sterile fashion per Mr. Randolph. The leg was then elevated, exsanguinated, tourniquet was insufflated to 300 mmHg. The knee was flexed to 100 degrees. Anterior midline incision was performed. Medial PATIENT NAME: RHONDA CLOUD DON parapatellar arthrotomy was performed. Patella was everted laterally. Severe grade IV changes noted through all three compartments. Hypertrophic osteophytes were resected. Ligament balancing was achieved utilizing a medial release. Medial and lateral menisci were excised. Anterior and posterior cruciate ligaments were then resected. Intramedullary instrumentation was then used to resect distal femur to 5 degrees of valgus, 10 mm was resected off the distal femur. Distal femur was appropriately sized. Size 7 cutting block was used to create the anterior, followed by posterior, followed by chamfer cuts. Appropriate osteotomy guide was then placed across distal femur and the femoral notch was resected. The proximal tibia was then translated anteriorly. Utilizing extramedullary instrumentation, the proximal tibia was resected perpendicular to its mechanical axis resecting 10 mm from the unaffected lateral tibial plateau. The proximal tibia was appropriately sized. Size 7 baseplate was noted to provide optimal coverage. Proximal tibia was appropriately prepped. The patella was then resected, so as to ensure advent of its normal height with prosthesis in place. Flexion as well as extension gaps were checked and noted to be equal. Trial components were placed into the joint. Optimal stability was noted utilizing a 7 mm insert. A 0 degrees of extension with 135 degrees of flexion were present. Patellofemoral tracking was within normal limits. There was no varus or valgus instability noted. The knee was stable in both flexion as well as extension. Trial components were removed. Bony surfaces prepared with cement implantation using pulsatile lavage irrigation. Tibial tray cemented into place followed by cementing rotation of femoral component. Polyethylene insert was then placed on the tibial tray and the knee was placed in full extension. Patellar component was cemented. Tourniquet deflated. Meticulous hemostasis achieved with Bovie electrocautery. Copious antibiotic lavage was performed. Medium Hemovac drain was then placed deep to the extensor mechanism and the knee was placed into 70 degrees of flexion. Arthrotomy closed in watertight fashion, 2.0 Quill suture. Skin closure with interrupted 0 Vicryl, followed by 2-0 Vicryl, followed by Ethicon Prineo mesh as per Mr. Randolph. Intraarticular anesthetic injection was performed by Mr. Randolph. Sterile dressing was applied by Mr. Randolph. Mr. Cloud was then extubated, taken to recovery room awake and alert without any anesthetic or operative complications. At the end of the case, sponge and needle counts were correct x2. During the procedure, Mr. Randolph was invaluable in positioning the patient along with preparation and draping of extremity. He was also vital in providing surgical exposure throughout the procedure, which greatly expedited the performance of the procedure in addition to protection of neurovascular structures. Finally, he was responsible for closure of the postoperative incisions as well as application of postoperative dressing as well as intraarticular anesthetic injection. Dictated By: Jeremiah Morales MD Date Dictated: 06/04/2024 09:27:15 Date Transcribed: 06/04/2024 09:48:21 B/[facility] PATIENT NAME: RHONDA CLOUD Receipt ID: [id number] Authenticated by Jeremiah Morales MD On 06/04/2024 10:13:46 AM at 1013 PATIENT NAME: RHONDA CLOUD [facility] 2024-06-04 06:18:00 [facility] ([facility]) Brief Op Note REPORT#:[id number] REPORT STATUS: Signed REPORT INITIALIZATION DATE:06/04/24 TIME: 617 PATIENT: RHONDA CLOUD UNIT #: [id number] ROOM/BED: : 62 AGE: 63 SEX: M ATTEND: Jeremiah Morales MD ADM AUTHOR: Jeremiah Morales MD REPT SERVICE DT/TIME: 06/04/24617 * ALL edits or amendments must be made on the electronic/computer document * Op/Inv Proc Note - Brief Pre-procedure diagnosis: Left knee osteoarthritis Post-procedure diagnosis: same as pre procedure dx Procedures performed: Left total knee arthroplasty Primary Surgeon: Dr Jeremiah Morales Vmware Engineer(s): Samy Ochoa DNP Findings: See full dictation Complications: none Estimated blood loss in ml's: 25 cc Specimens removed/altered: none at 0619 [facility] #:[id number] END OF [facility] 2024-06-02 17:23:00 [id number] [place] [address] PATIENT NAME: RHONDA CLOUD ADMIT DATE: 06/04/24 ACCOUNT NO: [id number] ROOM NO: Y.998 AGE: 63 REPORT TYPE: HISTORY AND PHYSICAL SEX: M ADMITTING PHYSICIAN:Jeremiah Morales MD ATTENDING PHYSICIAN:Jeremiah Morales MD ADMISSION DATE: 06/04/2024 10:15:00 ADMITTING DIAGNOSIS: Left knee osteoarthritis, M17.12. HISTORY OF PRESENT ILLNESS: Mr. Cloud is a 63-year-old male who has been having chronic pain in his left knee for the past 7 years. His pain has been quite severe over the past 2 years. He is having disabling pain on a daily basis. His pain is not improved despite nonoperative treatment. Due to his severe disability, he is admitted for left total knee arthroplasty. PAST MEDICAL HISTORY: Hypertension. SURGERIES: Include knee arthroscopy and colonoscopy. FAMILY HISTORY: Unremarkable. SOCIAL HISTORY: He does not smoke. He drinks occasionally. ALLERGIES: NO ALLERGIES ARE LISTED. MEDICATIONS: Amlodipine, olmesartan, propranolol. REVIEW OF SYSTEMS: Negative. PHYSICAL EXAMINATION: VITAL SIGNS: He is 5 feet 10 inches tall, 95.2 kg. ORTHOPEDIC EVALUATION: Leg lengths are equal. Full painless motion of both hips. Examination of left knee reveals an antalgic gait. He has a fixed varus deformity. He has painful passive motion. He has 5 to 110 degrees of motion. There is no instability. His distal neurovascular status is intact. RADIOGRAPHIC EVALUATION: Reveals varus alignment with severe osteoarthritis. ASSESSMENT: Left knee pain secondary to severe osteoarthropathy. SURGICAL PLAN: Left total knee arthroplasty. I have gone over at length with the patient the associated risks involved with this procedure. He understands these risks include but not limited to bleeding, infection, neurovascular damage, persistent pain, loss of motion, need for further operative intervention, leg length inequality, loosening of the prosthesis requiring possible revision, deep vein thrombi leading to pulmonary emboli along with complications secondary to anesthesia. He understands that he will receive a PATIENT NAME: RHONDA CLOUD fixed bearing medial stabilized implant. Furthermore, he understands that there are no guarantees or warranties that he will be pain free as a result of the procedure. He accepts these risks and gives his informed consent to proceed. Dictated By: Jeremiah Morales MD Date Dictated: 06/02/2024 17:23:11 Date Transcribed: 06/02/2024 17:40:32 RLB/CALI/VIDAA Receipt ID: [id number] Authenticated by Jeremiah Morales MD On 06/04/2024 10:13:41 AM at 1013 PATIENT NAME: RHONDA CLOUD [facility] 2024-05-18 10:06:00 [id number] [place] [address] PATIENT NAME: RHONDA CLOUD ADMIT DATE: ACCOUNT NO: [id number] ROOM NO: AGE: 63 REPORT TYPE: HISTORY AND PHYSICAL SEX: M ADMITTING PHYSICIAN: ATTENDING PHYSICIAN:Jeremiah Morales MD ADMISSION DATE: 05/21/2024 10:15:00 ADMITTING DIAGNOSIS: Left knee osteoarthritis, M17.12. HISTORY OF PRESENT ILLNESS: Mr. Cloud is a 63-year-old male who has been having progressive and severe pain involving his left knee for the past 3 years. He has been experiencing pain on a daily basis. The pain affects both his work as well as his daily activities. His pain has been refractory to nonoperative intervention. Due to his severe disability and lack of response to nonoperative treatment, he is admitted for left total knee arthroplasty. PAST MEDICAL HISTORY: Hypertension. PAST SURGICAL HISTORY: Include an arthroscopy and colonoscopy. FAMILY HISTORY: Unremarkable. SOCIAL HISTORY: He does not smoke nor does he drink. ALLERGIES: NO ALLERGIES ARE LISTED. MEDICATIONS: Losartan, propranolol. REVIEW OF SYSTEMS: Negative. PHYSICAL EXAMINATION: VITAL SIGNS: 5 feet 10 inches tall, 95.2 kg. Leg lengths are equal. Full painless motion of both hips. Examination of the left knee reveals a varus deformity. He has an antalgic gait, painful passive motion. He has 3-115 degrees of motion. There is no instability. His distal neurovascular status is intact. RADIOGRAPHIC EVALUATION: Reveals varus alignment with severe tricompartmental arthritis. ASSESSMENT: Left knee pain secondary to severe osteoarthropathy. SURGICAL PLAN: Will be to proceed with a left total knee arthroplasty. I have gone over at length with the patient the associated risks involved with this procedure. He understands these include, but are not limited to bleeding, infection, neurovascular damage, leg length inequality, loss of motion, painful scar, deep vein thrombi leading to pulmonary emboli along with complications PATIENT NAME: RHONDA CLOUD secondary to anesthesia. Furthermore, he understands that there are absolutely no guarantees or warranties that he will be pain free as a result of the procedure. He accepts these risks and gives his informed consent to proceed. Dictated By: Jeremiah Morales MD Date Dictated: 05/18/2024 10:06:37 Date Transcribed: 05/18/2024 10:23:40 RLB/MAN Receipt ID: [id number] Authenticated by Jeremiah Morales MD On 06/02/2024 05:30:08 PM at 0530 PATIENT NAME: RHONDA CLOUD [facility] 2024-04-26 14:24:00 [id number] [place] [address] PATIENT NAME: RHONDA CLOUD ADMIT DATE: ACCOUNT NO: [id number] ROOM NO: AGE: 63 REPORT TYPE: ELECTROCARDIOGRAM SEX: M ADMITTING PHYSICIAN: ATTENDING PHYSICIAN:Jeremiah Morales MD Order: [id number] Test Reason : PREOP CLEARANCE HTN Test Date/Time Stamp: MonApr 26 2024 14:24:24 Blood Pressure : / mmHG Vent. Rate : 067 BPM Atrial Rate : 067 BPM P-R Int : 200 ms QRS Dur : 098 ms QT Int : 410 ms P-R-T Axes : 068 057 035 degrees QTc Int : 433 ms Normal sinus rhythm Increased R/S ratio in V1, consider early transition or posterior infarct Abnormal ECG No previous ECGs available Confirmed by HAROON BAIN MD ([id number]) on 04/30/2024 10:53:40 AM Referred By: Jeremiah Morales Confirmed by:HAROON BAIN MD PATIENT NAME: RHONDA CLOUD [facility]
[2025-08-12 05:42] LABS: Absolute Lymphocytes (CBC) 1.3 K/uL (0.7-4.9); Hematocrit 42.7 % (39.6-49.0); Hemoglobin 14.2 g/dL (13.6-17.9); MCH 30.1 pg (27.0-35.0); MCHC 33.4 g/dL (32.0-36.0); MCV 90.2 fL (80-100); MPV 9.2 fL (7.6-11.3); Nucleated RBC Absolute Count 0.0 (0-0); Nucleated Red Blood Cells % 0.1 % (0-0); RBC Red Blood Cell Count 4.73 M/uL (4.33-5.43); White Blood Count 4.20 thou/uL (4.3-10.9)
[2025-08-12 05:49] LABS: PT Prothrombin Time 12.1 SECONDS (10-13.0); Protime INR 1.07
[2025-08-12 06:02] LABS: ALT/SGPT 21.0 U/L (16-61); AST/SGOT 14.0 U/L (15-37); Albumin 3.8 g/dL (3.4-5.0); Albumin/Globulin Ratio 1.1 (1.1-1.8); Alkaline Phosphatase 74.0 U/L (45-117); Anion Gap 6.6 mEq/L (5.0-15.0); BUN Blood Urea Nitrogen 14.0 mg/dL (7-18); Bilirubin Indirect, Calculated 1.1 mg/dL (0.2-0.8); Globulin 3.4 g/dL (2.3-3.5); Glucose Level 105.0 mg/dL (74-106); Magnesium 2.3 mg/dL (1.6-2.4); NT PRO-BNP 35.0 pg/mL (<125); Potassium 3.6 mEq/L (3.5-5.1); Troponin High Sensitivity 7.4 pg/mL (<58.9)
[2025-08-12 06:15] LABS: Urine Microscopic Reflex YN NO UMIC
[2025-08-12] MEDS ORDERED: AMLODIPINE 5 MG TAB ONE (06:25)
--- NOTE | 2025-08-12 06:31 | ER ---
Nurse's Notes [facility] Name: Alton Cloud Age: 65 yrs Sex: Male : 1960 Arrival Date: 08/12/2025 Time: 05:05 Bed 5 Private MD: Diagnosis: Essential (primary) hypertension Presentation: 08/12 05:23 Chief complaint: Patient states: Pt arrives to ER due to elevated B/P last night at br2 2100...170/90's. Pt states he took a Olemsartan medoxomil 20mg total (5mg, 10mg,5mg) to get b/p down. Pt denies CP, SOB, blurred vision, dizziness at this time. Pt concerned because he has taken his max on b/p meds and b/p is still elevated. Coronavirus screen: Client denies travel out of the [place] in the last 14 days. Ebola Screen: Patient denies exposure to infectious person. Initial Sepsis Screen: Does the patient meet any 2 criteria? No. Patient's initial sepsis screen is negative. Does the patient have a suspected source of infection? No. Patient's initial sepsis screen is negative. Risk Assessment: Do you want to hurt yourself or someone else? Patient reports no desire to harm self or others. Onset of symptoms was August 11, 2025 at 21:00. 05:23 Method Of Arrival: Ambulatory br2 05:23 Acuity: PRAKASH 3 br2 Triage Assessment: 05:27 General: Appears in no apparent distress. comfortable, Behavior is calm, cooperative, bm8 appropriate for age. Pain: Denies pain. EENT: No deficits noted. No signs and/or symptoms were reported regarding the EENT system. Neuro: No deficits noted. Level of Consciousness is awake, alert, obeys commands, Oriented to person, place, time, situation, Appropriate for age Denies numbness headache. Cardiovascular: Denies chest pain, lightheadedness, shortness of breath, Heart tones S1 S2 present Capillary refill < 3 seconds in bilateral fingers Patient's skin is warm and dry. Rhythm is sinus rhythm. Respiratory: Airway is patent Respiratory effort is even, unlabored, Respiratory pattern is regular, symmetrical. Respiratory: Breath sounds are clear bilaterally. GI: No deficits noted. No signs and/or symptoms were reported involving the gastrointestinal system. : No deficits noted. No signs and/or symptoms were reported regarding the genitourinary system. Derm: No deficits noted. No signs and/or symptoms reported regarding the dermatologic system. Musculoskeletal: No deficits noted. No signs and/or symptoms reported regarding the musculoskeletal system. Historical: - Allergies: :28 No Known Allergies; br2 - PMHx: :28 Hypertension; br2 - PSHx: :28 knee sx; br2 - Immunization history:: Adult Immunizations up to date. - Infectious Disease History:: Denies. - Social history:: Smoking status: Patient denies any tobacco usage or history of. Patient uses alcohol, occasionally. Patient/guardian denies using street drugs. - Family history:: not pertinent. Screenin:28 [facility] ED Fall Risk Assessment (Adult) History of falling in the last 3 months, bm8 including since admission No falls in past 3 months (0 pts) Confusion or Disorientation No (0 pts) Intoxicated or Sedated No (0 pts) Impaired Gait No (0 pts) Mobility Assist Device Used No (0 pt) Altered Elimination No (0 pt) Score/Fall Risk Level 0 - 2 = Low Risk Oriented to surroundings, Maintained a safe environment, Educated pt \T\ family on fall prevention, incl call for assistance when getting out of bed, Assessed \T\ reinforced patient's understanding of fall precautions, Hourly rounding (assess needs \T\ fall precautionary measures) done, Used ambulatory aids as needed (educated on \T\ assisted with), Used gait belt as appropriate. Abuse screen: Denies threats or abuse. Nutritional screening: No deficits noted. Tuberculosis screening: No symptoms or risk factors identified. Assessment: 05:23 General: Appears in no apparent distress. Behavior is calm, cooperative. Neuro: Level kd3 of Consciousness is awake, alert, obeys commands, Oriented to person, place, time, situation. Cardiovascular: Capillary refill < 3 seconds Patient's skin is warm and dry. Cardiovascular: Rhythm is sinus rhythm. Respiratory: Airway is patent Trachea midline Respiratory effort is even, unlabored, Respiratory pattern is regular, symmetrical. 06:17 Reassessment: Patient appears in no apparent distress at this time. Patient and/or bm8 family updated on plan of care and expected duration. Pain level reassessed. Patient is alert, oriented x 3, equal unlabored respirations, skin warm/dry/pink. Patient denies pain at this time. Patient states feeling better. Patient states symptoms have improved. Vital Signs: 05:23 BP 168 / 88; Pulse 75; Resp 18; Temp 98.4(O); Pulse Ox 97% on R/A; Weight 99.79 kg; br2 Height 5 ft. 10 in. ; Pain 0/10; 05:24 BP 168 / 88; Pulse 71; Resp 16; Pulse Ox 99% on R/A; kd3 06:17 BP 146 / 82; Pulse 62; Resp 17; Temp 98.4; Pulse Ox 99% ; Pain 0/10; bm8 05:23 Body Mass Index 31.57 (99.79 kg, 177.8 cm) br2 05:23 Pain Scale: Adult br2 06:17 Pain Scale: Adult bm8 Gem Coma Score: 06:17 Eye Response: spontaneous(4). Motor Response: obeys commands(6). Verbal Response: bm8 oriented(5). Total: 15. ED Course: 05:09 Patient arrived in ED. gm2 05:10 Conrad Parmar MD is Attending Physician. ja 05:15 Len Hankins, RN is Primary Nurse. bm8 05:24 EKG done, by ED staff, reviewed by Conrad Parmar MD. kd3 05:27 Arm band placed on right wrist. bm8 05:28 Triage completed. br2 05:28 No provider procedures requiring assistance completed. Initial lab(s) drawn, by ga, bm8 sent to lab. Inserted saline lock: 18 gauge in right antecubital area, using aseptic technique. Blood collected. Flushed with 10 mL NS. Patient maintains SpO2 saturation greater than 95% on room air. 05:28 Patient has correct armband on for positive identification. Bed in low position. Call bm8 light in reach. Side rails up X 1. Adult w/ patient. Client placed on continuous cardiac and pulse oximetry monitoring. NIBP monitoring applied. residential monitor on. Pulse ox on. NIBP on. Door closed. Noise minimized. Pillow given. Verbal reassurance given. Head of bed elevated. 05:54 XRAY Chest (1 view) In Process Unspecified. EDMS 06:30 Randell Ratliff MD is Referral Physician. ja 06:51 IV discontinued, intact, bleeding controlled, No redness/swelling at site. Pressure kd3 dressing applied. 06:52 Provided Education on: blood pressure . kd3 Administered Medications: 06:27 Drug: Norvasc PO 2.5 mg PO once Route: PO; bm8 06:52 Follow up: Response: No adverse reaction; Blood pressure is lowered kd3 Medication: 05:28 VIS not applicable for this client. bm8 Outcome: 06:30 Discharge ordered by MD. peres 06:51 Discharged to home ambulatory, with family, kd3 06:51 Condition: stable 06:51 Discharge instructions given to patient, family, Instructed on discharge instructions, follow up and referral plans. 06:52 Instructed on medication usage, Demonstrated understanding of instructions, follow-up kd3 care, medications, Prescriptions given X 2, 06:53 Patient left the ED. kd3 Signatures: Dispatcher [employer] EDConrad Mcmahon MD MD cha Doucette, Kyli RN RN kd3 Malgorzata Gifford 2 Len Hankins RN RN bm8 Francie Steward RN RN br2
--- NOTE | 2025-08-12 06:31 | EDPHYS ---
Physician Documentation [facility] Name: Alton Cloud Age: 65 yrs Sex: Male : 1960 Arrival Date: 08/12/2025 Time: 05:05 Bed 5 Private MD: ED Physician Conrad Parmar HPI: 08/12 05:42 This 65 yrs old Black Male presents to ER via Ambulatory with complaints of High Blood ja Pressure. 05:42 The patient has elevated blood pressure and discovered this at home. Onset: The ja symptoms/episode began/occurred yesterday. Modifying factors: The symptoms are aggravated by activity, The symptoms are alleviated by remaining still, prescription meds. Associated signs and symptoms: Pertinent positives: headache. Severity of symptoms: At its worst the blood pressure was moderate, in the emergency department the blood pressure is unchanged. The patient has not experienced similar symptoms in the past. Historical: - Allergies: 05:28 No Known Allergies; br2 - PMHx: 05:28 Hypertension; br2 - PSHx: 05:28 knee sx; br2 - Immunization history:: Adult Immunizations up to date. - Infectious Disease History:: Denies. - Social history:: Smoking status: Patient denies any tobacco usage or history of. Patient uses alcohol, occasionally. Patient/guardian denies using street drugs. - Family history:: not pertinent. ROS: 05:42 Constitutional: Negative for fever, chills, and weight loss, Eyes: Negative for injury, ja pain, redness, and discharge, ENT: Negative for injury, pain, and discharge, Neck: Negative for injury, pain, and swelling, Cardiovascular: Negative for chest pain, palpitations, and edema, Respiratory: Negative for shortness of breath, cough, wheezing, and pleuritic chest pain, Abdomen/GI: Negative for abdominal pain, nausea, vomiting, diarrhea, and constipation, Back: Negative for injury and pain, : Negative for injury, bleeding, discharge, and swelling, MS/Extremity: Negative for injury and deformity, Skin: Negative for injury, rash, and discoloration, Neuro: Negative for headache, weakness, numbness, tingling, and seizure, Psych: Negative for depression, anxiety, suicide ideation, homicidal ideation, and hallucinations, Allergy/Immunology: Negative for hives, rash, and allergies, Endocrine: Negative for neck swelling, polydipsia, polyuria, polyphagia, and marked weight changes, Hematologic/Lymphatic: Negative for swollen nodes, abnormal bleeding, and unusual bruising, 05:42 MS/extremity: Negative for acute changes, injury or acute deformity, decreased range of motion, pain, swelling, tenderness, Exam: 05:42 Constitutional: This is a well developed, well nourished patient who is awake, alert, ja and in no acute distress. Head/Face: Normocephalic, atraumatic. Eyes: Pupils equal round and reactive to light, extra-ocular motions intact. Lids and lashes normal. Conjunctiva and sclera are non-icteric and not injected. Cornea within normal limits. Periorbital areas with no swelling, redness, or edema. ENT: Nares patent. No nasal discharge, no septal abnormalities noted. Tympanic membranes are normal and external auditory canals are clear. Oropharynx with no redness, swelling, or masses, exudates, or evidence of obstruction, uvula midline. Mucous membranes moist. Neck: Trachea midline, no thyromegaly or masses palpated, and no cervical lymphadenopathy. Supple, full range of motion without nuchal rigidity, or vertebral point tenderness. No Meningismus. Chest/axilla: Normal chest wall appearance and motion. Nontender with no deformity. No lesions are appreciated. Cardiovascular: Regular rate and rhythm with a normal S1 and S2. No gallops, murmurs, or rubs. Normal PMI, no JVD. No pulse deficits. Respiratory: Lungs have equal breath sounds bilaterally, clear to auscultation and percussion. No rales, rhonchi or wheezes noted. No increased work of breathing, no retractions or nasal flaring. Abdomen/GI: Soft, non-tender, with normal bowel sounds. No distension or tympany. No guarding or rebound. No evidence of tenderness throughout. Back: No spinal tenderness. No costovertebral tenderness. Full range of motion. Male : Normal genitalia with no discharge or lesions. Skin: Warm, dry with normal turgor. Normal color with no rashes, no lesions, and no evidence of cellulitis. MS/ Extremity: Pulses equal, no cyanosis. Neurovascular intact. Full, normal range of motion., bilateral aka Neuro: Awake and alert, GCS 15, oriented to person, place, time, and situation. Cranial nerves II-XII grossly intact. Motor strength 5/5 in all extremities. Sensory grossly intact. Cerebellar exam normal. Normal gait. Psych: Awake, alert, with orientation to person, place and time. Behavior, mood, and affect are within normal limits. 05:42 Constitutional: The patient appears in no acute distress, alert, 05:42 ECG was reviewed by the Attending Physician. 05:42 Musculoskeletal/extremity: DVT Exam: No signs of deep vein thrombosis. no pain, no swelling, no tenderness, negative Homans' sign noted on exam, no appreciated bluish discoloration, no erythema, no increased warmth, 07:06 ECG was reviewed by the Attending Physician. [facility] Vital Signs: 05:23 BP 168 / 88; Pulse 75; Resp 18; Temp 98.4(O); Pulse Ox 97% on R/A; Weight 99.79 kg; br2 Height 5 ft. 10 in. ; Pain 0/10; 05:24 BP 168 / 88; Pulse 71; Resp 16; Pulse Ox 99% on R/A; kd3 06:17 BP 146 / 82; Pulse 62; Resp 17; Temp 98.4; Pulse Ox 99% ; Pain 0/10; bm8 05:23 Body Mass Index 31.57 (99.79 kg, 177.8 cm) br2 05:23 Pain Scale: Adult br2 06:17 Pain Scale: Adult bm8 Gem Coma Score: 06:17 Eye Response: spontaneous(4). Motor Response: obeys commands(6). Verbal Response: bm8 oriented(5). Total: 15. MDM: 05:10 Medical Screening Exam initiated ja 05:56 Differential diagnosis: hypertensive crisis, Malignant HTN, CVA, intracerebral ja hemorrhage. Data reviewed: vital signs, nurses notes, lab test result(s), EKG, radiologic studies, plain films. Consideration of Admission/Observation Escalation of care including admission/observation considered. Management of patient was discussed with the following: Primary Care Provider: dr copeland. Independent interpretation of the following test(s) in the Emergency Department EKG: See my EKG interpretation above. Test considered but Not performed: Ultrasound no 2 d echo. Historians other than the Patient: Spouse/Significant Other: well informed. Care significantly affected by the following chronic conditions: Hypertension. Counseling: I had a detailed discussion with the patient and/or guardian regarding the historical points, exam findings, and any diagnostic results supporting the discharge/admit diagnosis, the presence of at least one elevated blood pressure reading (>120/80) during this emergency department visit, lab results, radiology results, the need for outpatient follow up, for definitive care, a implementation manager, an qc manager. 08/12 05:11 Order name: Basic Metabolic Panel; Complete Time: 06:18 [facility] 08/12 05:11 Order name: CBC with Diff; Complete Time: 06:18 [facility] 08/12 05:11 Order name: LFT's; Complete Time: 06:18 [facility] 08/12 05:11 Order name: Magnesium; Complete Time: 06:18 [facility] 08/12 05:11 Order name: NT PRO-BNP; Complete Time: 06: [facility] 08/12 05:11 Order name: PT-INR; Complete Time: 06:18 [facility] 08/12 05:11 Order name: Troponin HS; Complete Time: 06:18 [facility] 08/12 05:11 Order name: UA Rfx Baldemar Cult if indicated; Complete Time: 06:18 [facility] 08/12 05:11 Order name: XRAY Chest (1 view) [facility] 08/12 05:11 Order name: Cardiac monitoring; Complete Time: 05:24 [facility] 08/12 05:11 Order name: EKG - Nurse/Tech; Complete Time: 05: [facility] 08/12 05:11 Order name: IV Saline Lock; Complete Time: : [facility] 08/12 05:11 Order name: Labs collected and sent; Complete Time: : [facility] 08/12 05:11 Order name: O2 Per Protocol; Complete Time: 05: [facility] 08/12 05:11 Order name: O2 Sat Monitoring; Complete Time: 05:24 [facility] EC:06 Rate is 69 beats/min. Rhythm is regular. QRS [place] is Normal. NH interval is normal. QRS ja interval is normal. QT interval is normal. No Q waves. T waves are Normal. No ST changes noted. Clinical impression: Normal ECG and No evidence of ischemia. Interpreted by me. Reviewed by me. Administered Medications: 06:27 Drug: Norvasc PO 2.5 mg PO once Route: PO; bm8 06:52 Follow up: Response: No adverse reaction; Blood pressure is lowered kd3 Disposition Summary: 09/30/25 06:30 Discharge Ordered Notes: Location: Home ja Problem: new ja Symptoms: have improved ja Condition: Stable ja Diagnosis - Essential (primary) hypertension ja Followup: ja - With: Private Physician - When: 2 - 3 days - Reason: Recheck today's complaints, Continuance of care, Re-evaluation by your physician Followup: ja - With: Randell Ratliff MD - When: 2 - 3 days - Reason: Recheck today's complaints, Continuance of care, Re-evaluation by your physician Discharge Instructions: - Discharge Summary Sheet ja - Hypertension, Adult ja - Hypertension, Adult, [id number] ja - How to Take Your Blood Pressure, [id number] ja - Aspirin and Your Heart ja - Managing Your Hypertension ja Forms: - Medication Reconciliation Form ja - Antibiotic Education ja - Prescription Opioid Use ja - Patient Portal Instructions ja - Leadership Thank You Letter [facility] Prescriptions: - Norvasc 2.5 mg Oral tablet - take 1 tablet ORAL route every 12 hours; 40 tablet; Refills: 0, Product ja Selection Permitted - olmesartan 5 mg Oral tablet - take 1 tablet ORAL route every 12 hours; 40 tablet; Refills: 0, Product ja Selection Permitted Signatures: Dispatcher [employer] EDMS Conrad Parmar MD MD cha McDonald, Brad RN RN bm8 Francie Steward RN RN br2 Donna Leslie RN kd3 Corrections: (The following items were deleted from the chart) 05:12 05:12 BASIC METABOLIC PANEL+C.LAB.BRZ ordered. EDMS EDMS 05:12 05:12 CBC+H.LAB.BRZ ordered. EDMS EDMS 05:12 05:12 HEPATIC FUNCTION+C.LAB.BRZ ordered. EDMS EDMS 05:12 05:12 MAGNESIUM+C.LAB.BRZ ordered. EDMS EDMS 05:12 05:12 PROBNP+C.LAB.BRZ ordered. EDMS EDMS 05:12 05:12 PROTIME (+INR)+COAG.LAB.BRZ ordered. EDMS EDMS 05:12 05:12 Troponin High Sensitivity+C.LAB.BRZ ordered. EDMS EDMS 05:12 05:12 UA Rfx Baldemar Cult if indicated+U.LAB.BRZ ordered. EDMS EDMS 05:12 05:12 Chest Single View+RAD.RAD.BRZ ordered. EDMS EDMS
[2025-08-12 06:57] VITALS: TEMP 98.4
[2025-08-12 06:59] VITALS: O2SAT 99
--- NOTE | 2025-08-12 06:59 | RAD REPORT ---
EXAM: XR Chest, 1 View CLINICAL HISTORY: The patient is 65 years old and is Male; COUGH TECHNIQUE: Frontal view of the chest. COMPARISON: No relevant prior studies available. FINDINGS: Lungs: Unremarkable. No consolidation. Pleural space: Unremarkable. No pneumothorax. Heart: Unremarkable. Mediastinum: Unremarkable. Normal mediastinal contour. Bones/joints: No acute findings. IMPRESSION: No acute findings in the chest. Electronically signed by: Sergio Polanco MD 08/12/2025 06:47 AM CDT 8 Due to temporary technical issues with the PACS/[employer] reporting system, reports are being claude d by the in-house radiologist without review as a courtesy to ensure prompt reporting the interpreting radiologist is fully responsible for the content of the report. Transcribed Date/Time: 08/12/2025 6:59 AM
[2025-08-12 07:01] VITALS: BP 146/82
== END 2025-08-12 06:53 | disposition home or self-care (01) ==
LOC: ER 05:05
DX: I10 Essential (primary) hypertension (principal)
CPT/HCPCS: 36415; 71045; 80048; 80076; 81003; 83735; 83880; 84484; 85025; 85610; 93005; 99285